=== PATIENT | female | born 1945 | race Caucasian/White ===

== ENCOUNTER → 2017-01-25 | Outpatient (REF) | payer MEDICARE ==
[2017-01-25 18:37] LABS: ALBUMIN 3.7 GM/DL (3.2-5.2); ALBUMIN/GLOBULIN RATIO 0.95 (1.00-1.93); ALKALINE PHOSPHATASE 130 U/L (45-117); ALT/SGPT 21 U/L (12-78); ANION GAP 6 MEQ/L (8-16); AST/SGOT 15 U/L (15-37); BILIRUBIN,TOTAL 0.4 MG/DL (0.2-1.0); BLOOD UREA NITROGEN 11 MG/DL (7-18); CARBON DIOXIDE LEVEL 30 MEQ/L (21-32); CHLORIDE LEVEL 102 MEQ/L (98-107); CHOLESTEROL LEVEL 158 MG/DL (<200); CREATININE FOR GFR 0.82 MG/DL (0.55-1.02); GLOMERULAR FILTRATION RATE > 60.0 (>45); GLUCOSE, FASTING 99 MG/DL (80-110); POTASSIUM SERUM 4.3 MEQ/L (3.5-5.1); SODIUM LEVEL 138 MEQ/L (136-145); TOTAL PROTEIN 7.6 GM/DL (6.4-8.2); TRIGLYCERIDES LEVEL 211 MG/DL (<150)
== END ==
LOC: M SFHCCLAY 11:34
PROVIDERS: ATTEND Family Medicine
DX: E78.2 Mixed hyperlipidemia (principal); I10 Essential (primary) hypertension

== ENCOUNTER → 2017-08-26 | Outpatient (CLI) | payer MEDICARE ==
--- NOTE | 2017-08-26 17:22 | REP ---
Digital diagnostic left breast mammography with CAD: History: 6-month followup microcalcifications left breast. Comparison [facility] mammography dated February 05, 2017 was read as BIRADS category 4 for new calcifications in the left breast. Comparison is also made with July 07, 2013 and May 20, 2012 prior mammography. Findings: Today's routine views are augmented by magnified focal spot compression views of the left breast. Six views are obtained. Breast parenchyma remains predominately fat replaced. The previously noted tight grouping of microcalcifications is again seen. No progressive changes are seen. Calcifications are somewhat less conspicuous today. No new soft tissue component is seen. No spiculation or architectural distortion is noted. Impression: No progressive change is seen in the previously noted grouping of microcalcifications in the left breast. BIRADS category must still be considered category 4 suspicious left breast imaging. If biopsy is not desired as originally suggested, continued follow-up is recommended. This mammogram was interpreted with the aid of an FDA-approved computer-aided detection system. The patient states she/he had a clinical breast exam in 6 months ago. The patient letter being requested is m#[id number]. Signed by Broderick Jones MD 08/26/2017 08:30 P
== END ==
LOC: M RAD 08-13 09:18
PROVIDERS: ATTEND Surgery
DX: R92.0 Mammographic microcalcification found on diagnostic imaging of breast (principal)

== ENCOUNTER → 2018-05-08 | Outpatient (REF) | payer MEDICARE ==
[2018-05-08 14:42] LABS: ALKALINE PHOSPHATASE 138 U/L (45-117); ALT/SGPT 23 U/L (12-78); ANION GAP 10 MEQ/L (8-16); AST/SGOT 15 U/L (7-37); BILIRUBIN,TOTAL 0.4 MG/DL (0.2-1.0); BLOOD UREA NITROGEN 10 MG/DL (7-18); CALCIUM LEVEL 9.1 MG/DL (8.8-10.2); CARBON DIOXIDE LEVEL 31 MEQ/L (21-32); CHLORIDE LEVEL 101 MEQ/L (98-107); CHOLESTEROL LEVEL 161 MG/DL (<200); CREATININE FOR GFR 0.91 MG/DL (0.55-1.30); GLOMERULAR FILTRATION RATE > 60.0 (>39); GLUCOSE, FASTING 121 MG/DL (70-100); POTASSIUM SERUM 3.4 MEQ/L (3.5-5.1); SODIUM LEVEL 142 MEQ/L (136-145); TRIGLYCERIDES LEVEL 233 MG/DL (<150)
[2018-05-08 14:43] LABS: ALBUMIN 3.5 GM/DL (3.2-5.2); CHOLESTEROL RISK RATIO 5.193 (<5); HDL CHOLESTEROL 31 MG/DL (>40); LDL CHOLESTEROL 83.4 MG/DL (<100); NON-HDL-C 130 MG/DL; TOTAL PROTEIN 7.4 GM/DL (6.4-8.2)
== END ==
LOC: M SFHCCLAY 08:34
DX: E78.2 Mixed hyperlipidemia (principal); I10 Essential (primary) hypertension
CPT/HCPCS: 84443

== ENCOUNTER → 2018-08-27 | Outpatient (CLI) | payer MEDICARE | LOC: M RAD 09:41 | DX: Z53.8 Procedure and treatment not carried out for other reasons (principal) ==

== ENCOUNTER → 2018-10-24 | Outpatient (REF) | payer MEDICARE ==
[2018-10-24 16:26] LABS: BLOOD UREA NITROGEN 11 MG/DL (7-18); CARBON DIOXIDE LEVEL 28 MEQ/L (21-32); CHLORIDE LEVEL 104 MEQ/L (98-107); CREATININE FOR GFR 0.85 MG/DL (0.55-1.30); GLOMERULAR FILTRATION RATE > 60.0 (>39); GLUCOSE, FASTING 95 MG/DL (70-100); POTASSIUM SERUM 3.9 MEQ/L (3.5-5.1); SODIUM LEVEL 141 MEQ/L (136-145)
== END ==
LOC: M SFHCCLAY 13:32
PROVIDERS: ATTEND Family Medicine
DX: E87.6 Hypokalemia (principal); I10 Essential (primary) hypertension
CPT/HCPCS: 80048; G0463

== ENCOUNTER → 2018-10-31 | Outpatient (CLI) | payer MEDICARE ==
--- NOTE | 2018-10-31 10:45 | REPMRS ---
Patient History 3D TOMOSYNTHESIS WAS PERFORMED. The patient states she has not had a clinical breast exam in over a year. Family history of unknown cancer at age 62 in sister. Took hormonal contraceptives for 9 years. Took estrogen for 17 years. Took progesterone for 17 years. Digital Mammo Screening Bilat: October 31, 2018 - Exam #: [id number] Bilateral CC and MLO view(s) were taken. Technologist: Christel Pa, Technologist Prior study comparison: August 26, 2017, left breast digital mammo diagnostic unilateral performed at [facility]. July 07, 2013, bilateral bilat screen digital mammo, performed at [facility] ([facility]). FINDINGS: There are scattered fibroglandular densities. There has been no change in the appearance of the mammogram from the prior studies. There is a mild amount of residual fibroglandular tissue which is fairly symmetric. There is no interval development of dominant mass, architectural distortion, or clustered microcalcification suggestive of malignancy. Assessment: BI-RADS/ACR category 1 mammogram. Negative Mammogram. Recommendation Routine screening mammogram in 1 year (for women over age 40). This mammogram was interpreted with the aid of an FDA-approved computer-aided dectection system. Electronically Signed By: Rogelio Love MD 10/31/18 [id number]
== END ==
LOC: M RAD 09:57
PROVIDERS: ATTEND Family Medicine
DX: Z12.31 Encounter for screening mammogram for malignant neoplasm of breast (principal); Z79.3 Long term (current) use of hormonal contraceptives

== ENCOUNTER → 2019-03-16 | Outpatient (REF) | payer MEDICARE ==
[2019-03-16 16:44] LABS: BLOOD UREA NITROGEN 8 MG/DL (7-18); CALCIUM LEVEL 8.7 MG/DL (8.8-10.2); CARBON DIOXIDE LEVEL 31 MEQ/L (21-32); CHLORIDE LEVEL 102 MEQ/L (98-107); CREATININE FOR GFR 0.79 MG/DL (0.55-1.30); GLOMERULAR FILTRATION RATE > 60.0 (>39); GLUCOSE, FASTING 117 MG/DL (70-100); POTASSIUM SERUM 3.4 MEQ/L (3.5-5.1); SODIUM LEVEL 138 MEQ/L (136-145)
== END ==
LOC: M SFHCCLAY 11:11
PROVIDERS: ATTEND Family Medicine
DX: I10 Essential (primary) hypertension (principal)

== ENCOUNTER 2019-06-10 09:51 | Day surgery (SDC) | payer MEDICARE ==
[~2019-06-10] VITALS: Ht 157.5 cm; Wt 80.9 kg
[~2019-06-10 09:51] MED LIST: ALL10TAB29 PO; HYDR25TAB PO; LOSA100T50 PO; MONT10TA2 PO; NS 1,000 ML IV ONE; OMEP40CA2 PO; POTA1TAB14 PO; SIMV20TA2 PO; VITA1CHW7 PO
--- NOTE | 2019-06-10 11:43 | ROOR ---
Patient Name: Kacie Mccloud Procedure Date: 06/10/2019 11:19 AM Date of : 1945 Age: 73 Room: [facility] Gender: Female Note Status: Finalized Procedure: Total Colonoscopy to Cecum + Cold Snare Polypectomy Indications: High risk colon cancer surveillance: Personal history of colonic polyps, Last colonoscopy: 2014 Providers: Alfonso Ga MD Referring MD: Ulices Camejo MD Requesting Provider: Medicines: Monitored Anesthesia Care Complications: No immediate complications. Procedure: Pre-Anesthesia Assessment: - The heart rate, respiratory rate, oxygen saturations, blood pressure, adequacy of pulmonary ventilation, and response to care were monitored throughout the procedure. The Colonoscope was introduced through the anus and advanced to the cecum, identified by appendiceal orifice and ileocecal valve. The colonoscopy was performed without difficulty. The patient tolerated the procedure well. The quality of the bowel preparation was excellent. Findings: The perianal and digital rectal examinations were normal. Non-bleeding internal hemorrhoids were found during retroflexion. The hemorrhoids were small and Grade I (internal hemorrhoids that do not prolapse). A small polyp was found in the ascending colon. The polyp was sessile. The polyp was removed with a cold snare. Resection and retrieval were complete. The exam was otherwise without abnormality on direct and retroflexion views. Impression: - Non-bleeding internal hemorrhoids. - One small polyp in the ascending colon, removed with a cold snare. Resected and retrieved. - The examination was otherwise normal on direct and retroflexion views. - The exam was otherwise normal to the cecum. Recommendation: - Patient has a contact number available for emergencies. The signs and symptoms of potential delayed complications were discussed with the patient. Return to normal activities tomorrow. Written discharge instructions were provided to the patient. - High fiber diet. - Discharge patient to home. - Continue present medications. - Repeat colonoscopy in 5 years for surveillance. - Return to referring physician. - The findings and recommendations were discussed with the patient's family. Alfonso Ga MD Alfonso Ga MD 06/10/2019 11:43:12 AM Electronically signed by Alfonso Ga MD Number of Addenda: 0 Note Initiated On: 06/10/2019 11:19 AM Estimated Blood Loss: Estimated blood loss: none.
[2019-06-10] MEDS ORDERED: LIDOCAINE 2% INJ 100 MG/5 ML SDV (FOR ANES.) As Ordered ONE (11:51)
[2019-06-10] MEDS ORDERED: PROPOFOL 200 MG/20 ML VIAL As Ordered ONE (11:51)
[2019-06-10 12:02] VITALS: BP 141/78
== END 2019-06-10 12:07 | disposition home or self-care (01) ==
LOC: M OPP 09:51
PROVIDERS: ATTEND Internal Medicine Gastroenterology
DX: Z12.11 Encounter for screening for malignant neoplasm of colon (principal); Z86.010 Personal history of colon polyps; K64.0 First degree hemorrhoids; D12.2 Benign neoplasm of ascending colon; Z79.899 Other long term (current) drug therapy; Z88.2 Allergy status to sulfonamides; Z91.040 Latex allergy status; Z91.048 Other nonmedicinal substance allergy status; F17.210 Nicotine dependence, cigarettes, uncomplicated

== ENCOUNTER 2019-09-10 14:18 | Emergency (ER) | payer MEDICARE ==
[~2019-09-10] VITALS: Ht 154.9 cm; Wt 77.3 kg
[~2019-09-10 14:18] MED LIST changes: -NS 1,000 ML IV ONE; -OMEP40CA2 PO; +OMEP40CA97 PO; -SIMV20TA2 PO; +SIMV20TA22 PO
[2019-09-10 15:40] VITALS: BP 142/77
== END 2019-09-10 15:44 | disposition home or self-care (01) ==
LOC: M ED 14:18
DX: S60.445A External constriction of left ring finger, initial encounter (principal); X58.XXXA Exposure to other specified factors, initial encounter; Y92.9 Unspecified place or not applicable; Y93.9 Activity, unspecified; Y99.9 Unspecified external cause status; I10 Essential (primary) hypertension; F17.200 Nicotine dependence, unspecified, uncomplicated; Z79.899 Other long term (current) drug therapy; Z88.2 Allergy status to sulfonamides; Z91.89 Other specified personal risk factors, not elsewhere classified; Z91.040 Latex allergy status

== ENCOUNTER → 2019-10-02 | Outpatient (REF) | payer MEDICARE ==
[2019-10-02 16:19] LABS: HEMOGLOBIN 13.5 g/dl (12.0-15.5); MEAN CORPUSCULAR HEMOGLOBIN 30.7 pg (27.0-33.0); MEAN CORPUSCULAR HGB CONC 32.1 g/dl (32.0-36.5); MEAN CORPUSCULAR VOLUME 95.5 fl (80.0-96.0); PLATELET COUNT, AUTOMATED 297 10^3/uL (150-450); WHITE BLOOD COUNT 8.6 10^3/uL (4.0-10.0)
[2019-10-02 16:28] LABS: ALBUMIN 3.9 GM/DL (3.2-5.2); ALT/SGPT 16 U/L (12-78); BILIRUBIN,TOTAL 0.5 MG/DL (0.2-1.0); BLOOD UREA NITROGEN 10 MG/DL (7-18); CALCIUM LEVEL 9.1 MG/DL (8.8-10.2); CARBON DIOXIDE LEVEL 29 MEQ/L (21-32); CHLORIDE LEVEL 105 MEQ/L (98-107); CHOLESTEROL LEVEL 202 MG/DL (<200); CHOLESTEROL RISK RATIO 5.941 (<5); CREATININE FOR GFR 0.89 MG/DL (0.55-1.30); GLOMERULAR FILTRATION RATE > 60.0 (>39); GLUCOSE, FASTING 97 MG/DL (70-100); HDL CHOLESTEROL 34 MG/DL (>40); LDL CHOLESTEROL 123 MG/DL (<100); NON-HDL-C 168 MG/DL; POTASSIUM SERUM 4.2 MEQ/L (3.5-5.1); SODIUM LEVEL 141 MEQ/L (136-145); TOTAL PROTEIN 7.9 GM/DL (6.4-8.2); TRIGLYCERIDES LEVEL 226 MG/DL (<150)
== END ==
LOC: M SFHCCLAY 11:19
PROVIDERS: ATTEND Family Medicine
DX: I10 Essential (primary) hypertension (principal); E78.00 Pure hypercholesterolemia, unspecified; K21.9 Gastro-esophageal reflux disease without esophagitis

== ENCOUNTER → 2020-03-24 | Outpatient (REF) | payer MEDICARE ==
[~2020-03-24] MED LIST changes: -ALL10TAB29 PO; +CETI-24 PO; +HYDR-3490 PO; -HYDR25TAB PO; +MONT10TA10 PO; -MONT10TA2 PO
[2020-03-24 18:00] LABS: HEMATOCRIT 39.6 % (36.0-47.0); HEMOGLOBIN 12.5 g/dl (12.0-15.5); MEAN CORPUSCULAR HEMOGLOBIN 30.9 pg (27.0-33.0); MEAN CORPUSCULAR HGB CONC 31.6 g/dl (32.0-36.5); MEAN CORPUSCULAR VOLUME 97.8 fl (80.0-96.0); PLATELET COUNT, AUTOMATED 255 10^3/uL (150-450); RED BLOOD COUNT 4.05 10^6/uL (4.00-5.40); WHITE BLOOD COUNT 9.8 10^3/uL (4.0-10.0)
[2020-03-24 18:16] LABS: ALBUMIN 3.5 GM/DL (3.2-5.2); ALT/SGPT 20 U/L (12-78); BILIRUBIN,TOTAL 0.5 MG/DL (0.2-1.0); BLOOD UREA NITROGEN 10 MG/DL (7-18); CALCIUM LEVEL 9.1 MG/DL (8.8-10.2); CARBON DIOXIDE LEVEL 30 MEQ/L (21-32); CHLORIDE LEVEL 105 MEQ/L (98-107); CHOLESTEROL LEVEL 153 MG/DL (<200); CHOLESTEROL RISK RATIO 4.935 (<5); CREATININE FOR GFR 0.84 MG/DL (0.55-1.30); GLOMERULAR FILTRATION RATE > 60.0 (>39); GLUCOSE, FASTING 134 MG/DL (70-100); HDL CHOLESTEROL 31 MG/DL (>40); LDL CHOLESTEROL 78 MG/DL (<100); NON-HDL-C 122 MG/DL; POTASSIUM SERUM 4.4 MEQ/L (3.5-5.1); SODIUM LEVEL 140 MEQ/L (136-145); TOTAL PROTEIN 7.4 GM/DL (6.4-8.2); TRIGLYCERIDES LEVEL 218 MG/DL (<150)
== END ==
LOC: M SFHCCLAY 13:31
PROVIDERS: ATTEND Family Medicine
DX: M79.89 Other specified soft tissue disorders (principal); E78.2 Mixed hyperlipidemia; I10 Essential (primary) hypertension

== ENCOUNTER → 2021-04-27 | Outpatient (REF) | payer MEDICARE ==
[~2021-04-27] MED LIST changes: +OMEP40CA4 PO; -OMEP40CA97 PO
[2021-04-27 16:25] LABS: ALBUMIN 4.1 GM/DL (3.2-5.2); ALT/SGPT 25 U/L (12-78); BILIRUBIN,TOTAL 0.4 MG/DL (0.2-1.0); BLOOD UREA NITROGEN 11 MG/DL (7-18); CALCIUM LEVEL 9.2 MG/DL (8.8-10.2); CARBON DIOXIDE LEVEL 32 MEQ/L (21-32); CHLORIDE LEVEL 106 MEQ/L (98-107); CHOLESTEROL LEVEL 166 MG/DL (<200); CHOLESTEROL RISK RATIO 5.187 (<5); CREATININE FOR GFR 0.82 MG/DL (0.55-1.30); GLOMERULAR FILTRATION RATE > 60.0 (>39); GLUCOSE, FASTING 106 MG/DL (70-100); HDL CHOLESTEROL 32 MG/DL (>40); LDL CHOLESTEROL 90 MG/DL (<100); NON-HDL-C 134 MG/DL; POTASSIUM SERUM 4.5 MEQ/L (3.5-5.1); SODIUM LEVEL 141 MEQ/L (136-145); TOTAL PROTEIN 7.9 GM/DL (6.4-8.2); TRIGLYCERIDES LEVEL 218 MG/DL (<150)
== END ==
LOC: M SFHCCLAY 10:37
PROVIDERS: ATTEND Family Medicine
DX: Z00.00 Encounter for general adult medical examination without abnormal findings (principal); I10 Essential (primary) hypertension; E78.2 Mixed hyperlipidemia; M79.89 Other specified soft tissue disorders

== ENCOUNTER → 2021-05-17 | Outpatient (CLI) | payer MEDICARE ==
--- NOTE | 2021-05-17 15:43 | REP ---
INDICATION: AYESHA SCR MAMMO/Z12.31. COMPARISON: Multiple TECHNIQUE: Digital screening mammography was carried out bilaterally in the CC and MLO projections using both 2D and 3D modalities and compared to the prior exams. By history, the patient has no complaints of a palpable breast abnormality or other significant breast complaints. FINDINGS: The breasts are unchanged in size and shape. Once again stable benign calcifications are again seen bilaterally. There are no sal soft tissue densities or spiculated masses. There is no internal architectural distortion. There are no suspicious calcifications. There is no skin thickening or nipple retraction. The Volpara volumetric breast density pattern is b. IMPRESSION: BIRADS/ACR category 2 benign findings. There is no evidence of malignant alteration of the breasts.. This patient's Tyrer-Cuzick lifetime breast cancer risk assessment score is 2.4%. This mammogram was interpreted with the aid of an FDA-approved computer-aided detection system. The patient states she had a clinical breast exam in over a year. The patient letter being requested is M1. RECOMMENDATION: Repeat screening mammography recommended 1 year (for women over 40). <Electronically signed by Kenneth Arellano > 05/17/21 [id number]
== END ==
LOC: M WHC 14:54
PROVIDERS: ATTEND Family Medicine
DX: Z12.31 Encounter for screening mammogram for malignant neoplasm of breast (principal)

== ENCOUNTER → 2021-09-27 | Outpatient (REF) | payer MEDICARE | LOC: M LAB REF 16:41 | PROVIDERS: ATTEND Surgery | DX: L72.0 Epidermal cyst (principal) ==

== ENCOUNTER → 2022-07-17 | Outpatient (CLI) | payer MEDICARE ==
[~2022-07-17] MED LIST changes: +LOSA100T45 PO; -LOSA100T50 PO; -MONT10TA10 PO; +MONT10TA97 PO
== END ==
LOC: M RAD 14:15
PROVIDERS: ATTEND Family Medicine
DX: Z12.2 Encounter for screening for malignant neoplasm of respiratory organs (principal); Z87.891 Personal history of nicotine dependence; J98.4 Other disorders of lung; J98.11 Atelectasis; I25.10 Atherosclerotic heart disease of native coronary artery without angina pectoris

== ENCOUNTER → 2022-08-02 | Outpatient (REF) | payer MEDICARE ==
[2022-08-02 17:42] LABS: HEMATOCRIT 39.9 % (36.0-47.0); HEMOGLOBIN 12.5 g/dl (12.0-15.5); MEAN CORPUSCULAR HEMOGLOBIN 30.6 pg (27.0-33.0); MEAN CORPUSCULAR HGB CONC 31.3 g/dl (32.0-36.5); MEAN CORPUSCULAR VOLUME 97.6 fl (80.0-96.0); PLATELET COUNT, AUTOMATED 257 10^3/uL (150-450); RED BLOOD COUNT 4.09 10^6/uL (4.00-5.40); WHITE BLOOD COUNT 10.3 10^3/uL (4.0-10.0)
[2022-08-02 18:25] LABS: ALBUMIN 3.7 GM/DL (3.2-5.2); ALKALINE PHOSPHATASE 126 U/L (45-117); ALT/SGPT 25 U/L (12-78); AST/SGOT 19 U/L (7-37); BILIRUBIN,TOTAL 0.4 MG/DL (0.2-1.0); BLOOD UREA NITROGEN 12 MG/DL (7-18); CALCIUM LEVEL 9.7 MG/DL (8.8-10.2); CARBON DIOXIDE LEVEL 31 MEQ/L (21-32); CHLORIDE LEVEL 105 MEQ/L (98-107); CHOLESTEROL LEVEL 158 MG/DL (<200); CHOLESTEROL RISK RATIO 4.937 (<5); CREATININE FOR GFR 0.93 MG/DL (0.55-1.30); GLOMERULAR FILTRATION RATE > 60.0 (>39); GLUCOSE, FASTING 143 MG/DL (70-100); HDL CHOLESTEROL 32 MG/DL (>40); LDL CHOLESTEROL 77 MG/DL (<100); NON-HDL-C 126 MG/DL; SODIUM LEVEL 140 MEQ/L (136-145); TOTAL PROTEIN 7.5 GM/DL (6.4-8.2); TRIGLYCERIDES LEVEL 247 MG/DL (<150)
== END ==
LOC: M SFHCCLAY 13:50
PROVIDERS: ATTEND Family Medicine
DX: I10 Essential (primary) hypertension (principal); E78.00 Pure hypercholesterolemia, unspecified; J44.9 Chronic obstructive pulmonary disease, unspecified

== ENCOUNTER → 2022-08-06 | Outpatient (CLI) | payer MEDICARE | LOC: M WHC 11:13 | PROVIDERS: ATTEND Family Medicine | DX: Z12.31 Encounter for screening mammogram for malignant neoplasm of breast (principal) ==

== ENCOUNTER → 2023-06-07 | Outpatient (REF) | payer MEDICARE ==
[~2023-06-07] MED LIST changes: -LOSA100T45 PO; +LOSA100T46 PO; +POTA-298 PO; -POTA1TAB14 PO
== END ==
LOC: M SFHCCLAY 13:57
PROVIDERS: ATTEND Family Medicine
DX: I10 Essential (primary) hypertension (principal); I83.11 Varicose veins of right lower extremity with inflammation; I83.12 Varicose veins of left lower extremity with inflammation; E78.00 Pure hypercholesterolemia, unspecified

== ENCOUNTER → 2023-06-14 | Outpatient (REF) | payer MEDICARE ==
[2023-06-14 18:02] LABS: APPEARANCE, URINE CLEAR (CLEAR); BACTERIA, URINE AUTO NEGATIVE (NEGATIVE); BILIRUBIN, URINE AUTO NEGATIVE (NEGATIVE); BLOOD, URINE BLOOD NEGATIVE (NEGATIVE); COLOR, URINE YELLOW (YELLOW); GLUCOSE, URINE (UA) AUTO NEGATIVE (NEGATIVE); KETONE, URINE AUTO NEGATIVE (NEGATIVE); LEUKOCYTE ESTERASE, URINE AUTO NEGATIVE (NEGATIVE); NITRITE, URINE AUTO NEGATIVE (NEGATIVE); PROTEIN, URINE AUTO NEGATIVE (NEGATIVE); RBC, URINE AUTO 1 /HPF (0-3); SPECIFIC GRAVITY URINE AUTO 1.011 (1.002-1.035); SQUAMOUS EPITHELIAL CELL UR AU 2 /HPF (0-6); UROBILINOGEN, URINE AUTO 0.2 mg/dL (0.0-2.0); WBC, URINE AUTO 1 /HPF (0-3)
[2023-06-14 18:43] LABS: ALBUMIN 3.6 G/DL (3.2-5.2); ALKALINE PHOSPHATASE 135 U/L (46-116); ALT/SGPT 18 U/L (7.0-40); AST/SGOT 18 U/L (<34); BILIRUBIN,TOTAL 0.4 MG/DL (0.3-1.2); BLOOD UREA NITROGEN 11 MG/DL (9-23); CALCIUM LEVEL 8.9 MG/DL (8.3-10.6); CARBON DIOXIDE LEVEL 31 MMOL/L (20-31); CHLORIDE LEVEL 104 MMOL/L (98-107); CHOLESTEROL LEVEL 159 MG/DL (<200); CHOLESTEROL RISK RATIO 5.38 (<5); CREATININE FOR GFR 0.76 MG/DL (0.55-1.30); GLOMERULAR FILTRATION RATE > 60.0 (>39); GLUCOSE, FASTING 114 MG/DL (74-106); HDL CHOLESTEROL 29.5 MG/DL (>40); LDL CHOLESTEROL 84.9 MG/DL (<100); NON-HDL-C 129.5 MG/DL; POTASSIUM SERUM 4.5 MMOL/L (3.5-5.1); SODIUM LEVEL 141 MMOL/L (136-145); TOTAL PROTEIN 7.2 G/DL (5.7-8.2); TRIGLYCERIDES LEVEL 223 MG/DL (<150)
== END ==
LOC: M SFHCCLAY 10:22
PROVIDERS: ATTEND Family Medicine
DX: I10 Essential (primary) hypertension (principal); I83.11 Varicose veins of right lower extremity with inflammation; I83.12 Varicose veins of left lower extremity with inflammation; E78.00 Pure hypercholesterolemia, unspecified

== ENCOUNTER → 2023-10-18 | Outpatient (CLI) | payer MEDICARE | LOC: M RAD 13:19 | PROVIDERS: ATTEND Family Medicine | DX: Z12.2 Encounter for screening for malignant neoplasm of respiratory organs (principal); Z87.891 Personal history of nicotine dependence ==

== ENCOUNTER → 2024-03-24 | Outpatient (REF) | payer MEDICARE | LOC: M SFHCCLAY 13:37 | PROVIDERS: ATTEND Family Medicine | DX: Z00.00 Encounter for general adult medical examination without abnormal findings (principal); I10 Essential (primary) hypertension; K21.9 Gastro-esophageal reflux disease without esophagitis ==

== ENCOUNTER → 2024-03-27 | Outpatient (REF) | payer MEDICARE ==
[2024-03-27 17:04] LABS: ALBUMIN 3.8 G/DL (3.2-5.2); ALKALINE PHOSPHATASE 123 U/L (46-116); ALT/SGPT 14 U/L (7.0-40); AST/SGOT 12 U/L (<34); BILIRUBIN,TOTAL 0.6 MG/DL (0.3-1.2); BLOOD UREA NITROGEN 14 MG/DL (9-23); CALCIUM LEVEL 9.5 MG/DL (8.3-10.6); CARBON DIOXIDE LEVEL 28 MMOL/L (20-31); CHLORIDE LEVEL 107 MMOL/L (98-107); CHOLESTEROL LEVEL 175 MG/DL (<200); CHOLESTEROL RISK RATIO 6.34 (<5); CREATININE FOR GFR 0.76 MG/DL (0.55-1.30); GLOMERULAR FILTRATION RATE > 60.0 (>39); GLUCOSE, FASTING 108 MG/DL (74-106); HDL CHOLESTEROL 27.6 MG/DL (>40); LDL CHOLESTEROL 95.6 MG/DL (<100); NON-HDL-C 147.4 MG/DL; POTASSIUM SERUM 4.6 MMOL/L (3.5-5.1); SODIUM LEVEL 141 MMOL/L (136-145); TOTAL PROTEIN 7.3 G/DL (5.7-8.2); TRIGLYCERIDES LEVEL 259 MG/DL (<150)
[2024-03-27 17:07] LABS: HEMATOCRIT 39.9 % (36.0-47.0); MEAN CORPUSCULAR HEMOGLOBIN 31.9 pg (27.0-33.0); MEAN CORPUSCULAR HGB CONC 32.6 g/dl (32.0-36.5); MEAN CORPUSCULAR VOLUME 97.8 fl (80.0-96.0); PLATELET COUNT, AUTOMATED 246 10^3/uL (150-450); RED BLOOD COUNT 4.08 10^6/uL (4.00-5.40); WHITE BLOOD COUNT 8.3 10^3/uL (4.0-10.0)
== END ==
LOC: M SFHCCLAY 11:35
PROVIDERS: ATTEND Family Medicine
DX: Z00.00 Encounter for general adult medical examination without abnormal findings (principal); I10 Essential (primary) hypertension; K21.9 Gastro-esophageal reflux disease without esophagitis; E78.2 Mixed hyperlipidemia

== ENCOUNTER → 2024-04-07 | Outpatient (CLI) | payer MEDICARE | LOC: M WHC 08:51 | PROVIDERS: ATTEND Family Medicine | DX: Z13.820 Encounter for screening for osteoporosis (principal); M85.852 Other specified disorders of bone density and structure, left thigh; M85.88 Other specified disorders of bone density and structure, other site; M81.0 Age-related osteoporosis without current pathological fracture ==

== ENCOUNTER → 2024-08-17 | Outpatient (CLI) | payer MEDICARE | LOC: M WUC 12:30 | PROVIDERS: ATTEND Physician Assistant | DX: M20.12 Hallux valgus (acquired), left foot (principal); M77.32 Calcaneal spur, left foot; M20.42 Other hammer toe(s) (acquired), left foot; L97.521 Non-pressure chronic ulcer of other part of left foot limited to breakdown of skin ==

== ENCOUNTER → 2024-09-15 | Outpatient (REF) | payer MEDICARE ==
[2024-09-15 19:02] LABS: ALBUMIN 3.7 G/DL (3.2-5.2); BILIRUBIN,TOTAL 0.2 MG/DL (0.3-1.2); CHOLESTEROL RISK RATIO 6.49 (<5); CREATININE FOR GFR 1.54 MG/DL (0.55-1.30); GLOMERULAR FILTRATION RATE 34.8 (>39); HDL CHOLESTEROL 28.5 MG/DL (>40); LDL CHOLESTEROL 107.1 MG/DL (<100); NON-HDL-C 156.5 MG/DL; POTASSIUM SERUM 4.8 MMOL/L (3.5-5.1); TOTAL PROTEIN 7.6 G/DL (5.7-8.2)
[2024-09-15 19:18] LABS: HEMOGLOBIN A1c 6.1 % (4.0-6.0)
== END ==
LOC: M SFHCCLAY 13:36
PROVIDERS: ATTEND Physician Assistant
DX: I10 Essential (primary) hypertension (principal); K21.9 Gastro-esophageal reflux disease without esophagitis; J44.9 Chronic obstructive pulmonary disease, unspecified; E78.2 Mixed hyperlipidemia; Z72.0 Tobacco use; Z68.38 Body mass index [BMI] 38.0-38.9, adult; E55.9 Vitamin D deficiency, unspecified; M81.0 Age-related osteoporosis without current pathological fracture; Z79.899 Other long term (current) drug therapy

== ENCOUNTER → 2024-09-18 | Outpatient (CLI) | payer MEDICARE ==
[~2024-09-18] MED LIST changes: +ALBU8.5H PO; +ALEN70TA82 PO; +CALCCAP4 PO; +CARV3.12 PO; +CHOL50003 PO; +ISOVUE-370 76% 100ML VIAL As Ordered ONE; +MELA5TAB7 PO; +SPIR-10 PO
== END ==
LOC: M RAD 10:20
PROVIDERS: ATTEND Surgery
DX: L97.522 Non-pressure chronic ulcer of other part of left foot with fat layer exposed (principal); R68.89 Other general symptoms and signs; I70.202 Unspecified atherosclerosis of native arteries of extremities, left leg; K57.30 Diverticulosis of large intestine without perforation or abscess without bleeding; R22.43 Localized swelling, mass and lump, lower limb, bilateral
CPT/HCPCS: 73706; Q9967

== ENCOUNTER → 2024-09-22 | Outpatient (REF) | payer MEDICARE ==
[~2024-09-22] MED LIST changes: +CEFD1CAP9 PO; +CEFD300CAP PO; +DOXY100T PO; +DOXY100T27 PO; +ELIQ5TAB PO; -ISOVUE-370 76% 100ML VIAL As Ordered ONE
[2024-09-22 14:04] LABS: CALCIUM LEVEL 9.3 MG/DL (8.3-10.6); CREATININE FOR GFR 1.74 MG/DL (0.55-1.30); GLOMERULAR FILTRATION RATE 30.2 (>39)
== END ==
LOC: M SFHCCLAY 08:26
PROVIDERS: ATTEND Physician Assistant
DX: N28.9 Disorder of kidney and ureter, unspecified (principal)

== ENCOUNTER 2024-09-26 10:14 | Inpatient (IN) | payer MEDICARE ==
[~2024-09-26] VITALS: Ht 154.9 cm; Wt 84.7 kg
[~2024-09-26 10:14] MED LIST changes: -ALBU8.5H PO; -ALEN70TA82 PO; -CALCCAP4 PO; -CARV3.12 PO; -CEFD1CAP9 PO; -CEFD300CAP PO; -CHOL50003 PO; -DOXY100T PO; -DOXY100T27 PO; -ELIQ5TAB PO; -MELA5TAB7 PO; -SPIR-10 PO
[2024-09-26 11:32] LABS: BASO # 0.1 10^3/uL (0.0-0.2); BASO % 0.7 % (0.0-1.0); EOS # 0.3 10^3/uL (0.0-0.5); EOS % 2.4 % (0.0-3.0); HEMATOCRIT 31.6 % (36.0-47.0); HEMOGLOBIN 10.4 g/dl (12.0-15.5); LYMPH # 1.5 10^3/uL (1.5-5.0); LYMPH % 11.7 % (24.0-44.0); MEAN CORPUSCULAR HEMOGLOBIN 31.7 pg (27.0-33.0); MEAN CORPUSCULAR HGB CONC 32.9 g/dl (32.0-36.5); MEAN CORPUSCULAR VOLUME 96.3 fl (80.0-96.0); MONO # 1.2 10^3/uL (0.0-0.8); MONO % 9.7 % (2.0-8.0); NEUTROPHILS # 9.6 10^3/uL (1.5-8.5); NEUTROPHILS % 74.9 % (36.0-66.0); PLATELET COUNT, AUTOMATED 283 10^3/uL (150-450); RED BLOOD COUNT 3.28 10^6/uL (4.00-5.40); WHITE BLOOD COUNT 12.8 10^3/uL (4.0-10.0)
[2024-09-26 12:01] LABS: ETHYL ALCOHOL (ETHANOL) < 0.003 % (0.000-0.010)
[2024-09-26 12:03] LABS: ALBUMIN 3.2 G/DL (3.2-5.2); ALKALINE PHOSPHATASE 121 U/L (35-104); ALT/SGPT 15 U/L (7.0-40); AST/SGOT 13 U/L (<34); BILIRUBIN,DIRECT 0.1 MG/DL (<0.4); BILIRUBIN,TOTAL 0.3 MG/DL (0.3-1.2); BLOOD UREA NITROGEN 54 MG/DL (9-23); CALCIUM LEVEL 8.7 MG/DL (8.3-10.6); CARBON DIOXIDE LEVEL 16 MMOL/L (20-31); CHLORIDE LEVEL 112 MMOL/L (98-107); GLOMERULAR FILTRATION RATE 38.8 (>39); GLUCOSE, FASTING 106 MG/DL (74-106); SODIUM LEVEL 139 MMOL/L (136-145); TOTAL PROTEIN 7.7 G/DL (5.7-8.2)
[2024-09-26 12:10] LABS: THYROID STIMULATING HORMONE 4.588 uIU/ML (0.55-4.78)
[2024-09-26 13:42] LABS: ERYTHROCYTE SEDIMENTATION RATE 60 mm/hr (0-30)
[2024-09-26 13:49] LABS: CK-MB VALUE MASS 1.1 NG/ML (<3.6)
[2024-09-26 13:51] LABS: C REACTIVE PROTEIN QUANTITATIV 12.87 MG/DL (<1.0)
[2024-09-26 13:53] LABS: CPK CREATINE PHOSPHOKINASE 31 U/L (34-145); MB/CK RELATIVE INDEX 3.54 (< OR =4)
[2024-09-26 14:15] LABS: VENOUS BASE EXCESS -12.6 (-2.0-2.0); VENOUS HCO3 14.9 MMOL/L (23.0-27.0); VENOUS O2 SATURATION 53.9 % (60.0-80.0); VENOUS PARTIAL PRESSURE CO2 40.3 mmHg (38.0-50.0); VENOUS PARTIAL PRESSURE O2 33.2 mmHg (30.0-50.0); VENOUS PH 7.187 UNITS (7.330-7.430); VENOUS STANDARD HCO3 13.9 MMOL/L; VENOUS TOTAL CO2 16.2 MMOL/L (24.0-28.0)
[2024-09-26] MEDS: NS (Normal Saline) 0.9% 1,000 ML IV ONE (14:30)
[2024-09-26] MEDS ORDERED: ISOVUE-370 76% 100ML VIAL As Ordered ONE (15:16)
[2024-09-26 15:24] LABS: CK-MB VALUE MASS 1.3 NG/ML (<3.6)
[2024-09-26 15:27] LABS: MB/CK RELATIVE INDEX 4.81 (< OR =4)
[2024-09-26] MEDS ORDERED: VANCOMYCIN/WATER FOR INJ 1,000 MG in IV 1 EA IV SCH (15:55)
[2024-09-26] MEDS ORDERED: HEPARIN SOD (PORCINE) 5000UNITS/ML 1ML VIAL/SYRINGE IV PRN (16:10)
[2024-09-26] MEDS: cefTRIAXone SOD 1 GM in DEXTROSE 5% (D5W) ADV/MINI-BAG 50 ML IV ONE (16:11)
[2024-09-26] MEDS: NS (Normal Saline) 0.9% 1,000 ML IV SCH (16:55)
[2024-09-26] MEDS ORDERED: IPRATROPIUM 0.5MG/ALBUTEROL 2.5MG INH SOL UD 3ML (DUONEB) NEB PRN (16:55)
[2024-09-26] MEDS ORDERED: ACETAMINOPHEN 325 MG TAB PO PRN (16:55)
[2024-09-26] MEDS ORDERED: CALCCAP4 PO (18:31)
[2024-09-26] MEDS ORDERED: SPIR-10 PO (18:31)
[2024-09-26] MEDS ORDERED: ALEN70TA82 PO (18:31)
[2024-09-26] MEDS ORDERED: CARV3.12 PO (18:31)
[2024-09-26] MEDS ORDERED: CHOL50003 PO (18:31)
[2024-09-26] MEDS ORDERED: ALBU8.5H PO (18:31)
[2024-09-26] MEDS ORDERED: MELA5TAB7 PO (18:31)
[2024-09-26] MEDS ORDERED: HOME MED LIST COMPLETE! XX SCH (18:35)
[2024-09-26 18:36] LABS: CREATININE,RANDOM URINE 91.8 MG/DL
[2024-09-26 18:40] LABS: IRON (FE) 12 UG/DL (50-170); PERCENT SATURATION 4.6 % (13.2-45.0); TOTAL IRON BINDING CAPACITY 259 UG/DL (250-425)
[2024-09-26 18:42] LABS: VITAMIN B12 LEVEL 420 PG/ML (211-911)
[2024-09-26 18:43] LABS: FERRITIN 275.6 NG/ML (7.3-270.7)
[2024-09-26 18:47] LABS: PROCALCITONIN 0.12 ng/ml
[2024-09-26 18:50] LABS: FOLATE 10.73 NG/ML (>5.4)
[2024-09-26] MEDS: APIXABAN 5 MG TAB (ELIQUIS) PO SCH (18:56)
[2024-09-26] MEDS: IPRATROPIUM 0.5MG/ALBUTEROL 2.5MG INH SOL UD 3ML (DUONEB) NEB SCH (20:11)
[2024-09-26 20:45] VITALS: BP 131/63; TEMP 97.2; O2SAT 94
[2024-09-26] MEDS: SODIUM BICARBONATE 325 MG TAB PO SCH (21:39)
[2024-09-26] MEDS: DOXYCYCLINE HYCLATE 100MG TABLET PO SCH (21:40)
[2024-09-26] MEDS: CARVedilol 3.125 MG TAB PO SCH (21:40)
[2024-09-26 23:41] VITALS: BP 124/60; TEMP 96.9; O2SAT 92
[2024-09-27 04:08] VITALS: BP 130/58; TEMP 97.7; O2SAT 93
[2024-09-27 05:27] LABS: BASO # 0.1 10^3/uL (0.0-0.2); BASO % 0.8 % (0.0-1.0); EOS # 0.7 10^3/uL (0.0-0.5); HEMATOCRIT 27.1 % (36.0-47.0); HEMOGLOBIN 9.1 g/dl (12.0-15.5); LYMPH # 1.1 10^3/uL (1.5-5.0); LYMPH % 10.3 % (24.0-44.0); MEAN CORPUSCULAR HEMOGLOBIN 31.4 pg (27.0-33.0); MEAN CORPUSCULAR HGB CONC 33.6 g/dl (32.0-36.5); MEAN CORPUSCULAR VOLUME 93.4 fl (80.0-96.0); MONO # 1.1 10^3/uL (0.0-0.8); MONO % 9.8 % (2.0-8.0); NEUTROPHILS # 7.9 10^3/uL (1.5-8.5); NEUTROPHILS % 72.4 % (36.0-66.0); PLATELET COUNT, AUTOMATED 247 10^3/uL (150-450); WHITE BLOOD COUNT 10.9 10^3/uL (4.0-10.0)
[2024-09-27 05:44] LABS: C REACTIVE PROTEIN QUANTITATIV 10.44 MG/DL (<1.0)
[2024-09-27 06:16] LABS: CALCIUM LEVEL 7.9 MG/DL (8.3-10.6); CREATININE FOR GFR 0.98 MG/DL (0.55-1.30); GLOMERULAR FILTRATION RATE 58.6 (>39); POTASSIUM SERUM 4.4 MMOL/L (3.5-5.1)
[2024-09-27 07:20] VITALS: BP 132/60; TEMP 97.2; O2SAT 93
[2024-09-27] MEDS: MAG SULF 1GM/100ML (MAG RUN) 1 GM in IV 1 EA IV SCH (07:47)
[2024-09-27] MEDS ORDERED: SODIUM BICARBONATE 75 MEQ in NS 0.45% 1,000 ML IV SCH (09:00)
[2024-09-27 11:05] LABS: BLOOD UREA NITROGEN 33 MG/DL (9-23); CARBON DIOXIDE LEVEL 16 MMOL/L (20-31); CHLORIDE LEVEL 113 MMOL/L (98-107); CREATININE FOR GFR 0.93 MG/DL (0.55-1.30); GLOMERULAR FILTRATION RATE > 60.0 (>39); GLUCOSE, FASTING 195 MG/DL (74-106); POTASSIUM SERUM 4.2 MMOL/L (3.5-5.1); SODIUM LEVEL 142 MMOL/L (136-145)
[2024-09-27 11:58] VITALS: BP 132/60; TEMP 96.9; O2SAT 93
[2024-09-27] MEDS: SODIUM BICARBONATE 325 MG TAB PO SCH (12:37)
[2024-09-27] MEDS: FERRIC CARBOXYMALTOSE INJ 750 MG, VIAL MATE ADAPTER 1 EACH in NS 100 ML IV ONE (12:38)
[2024-09-27] MEDS: cefTRIAXone SOD 1 GM in DEXTROSE 5% (D5W) ADV/MINI-BAG 50 ML IV SCH (15:52)
[2024-09-27 16:22] VITALS: BP 103/56; TEMP 97; O2SAT 90
[2024-09-27 19:53] VITALS: BP 101/56; TEMP 97.8; O2SAT 90
[2024-09-27] MEDS: guaiFENesin ER TABLET 600 MG TAB PO SCH (21:05)
[2024-09-27 23:31] VITALS: BP 118/57; TEMP 97.5; O2SAT 90
[2024-09-28 03:31] VITALS: BP 127/61; TEMP 97.8; O2SAT 92
[2024-09-28 06:15] LABS: BASO # 0.1 10^3/uL (0.0-0.2); BASO % 0.7 % (0.0-1.0); EOS # 0.7 10^3/uL (0.0-0.5); EOS % 6.8 % (0.0-3.0); HEMOGLOBIN 8.9 g/dl (12.0-15.5); LYMPH # 1.1 10^3/uL (1.5-5.0); LYMPH % 10.7 % (24.0-44.0); MEAN CORPUSCULAR HEMOGLOBIN 30.8 pg (27.0-33.0); MEAN CORPUSCULAR VOLUME 93.4 fl (80.0-96.0); MONO # 1.1 10^3/uL (0.0-0.8); MONO % 9.9 % (2.0-8.0); NEUTROPHILS # 7.5 10^3/uL (1.5-8.5); NEUTROPHILS % 70.2 % (36.0-66.0); PLATELET COUNT, AUTOMATED 264 10^3/uL (150-450); RED BLOOD COUNT 2.89 10^6/uL (4.00-5.40); WHITE BLOOD COUNT 10.6 10^3/uL (4.0-10.0)
[2024-09-28 06:40] LABS: BLOOD UREA NITROGEN 21 MG/DL (9-23); C REACTIVE PROTEIN QUANTITATIV 8.57 MG/DL (<1.0); CARBON DIOXIDE LEVEL 19 MMOL/L (20-31); CHLORIDE LEVEL 112 MMOL/L (98-107); CREATININE FOR GFR 0.85 MG/DL (0.55-1.30); GLOMERULAR FILTRATION RATE > 60.0 (>39); GLUCOSE, FASTING 114 MG/DL (74-106); POTASSIUM SERUM 4.1 MMOL/L (3.5-5.1); SODIUM LEVEL 140 MMOL/L (136-145)
[2024-09-28 07:55] VITALS: BP 122/60; TEMP 97.7; O2SAT 91
[2024-09-28] MEDS: OMEPRAZOLE 20MG CAP PO SCH (10:11)
[2024-09-28 12:27] VITALS: BP 157/60; TEMP 97.8; O2SAT 92
[2024-09-28] MEDS: ONDANSETRON 4MG 2ML VIAL IV PRN (13:22)
[2024-09-28] MEDS: CEFDINIR 300 MG CAP (OMNICEF) PO SCH (14:07)
[2024-09-28 16:52] VITALS: BP 130/62; TEMP 97.9; O2SAT 92
[2024-09-28 19:29] VITALS: BP 104/56; TEMP 98.6; O2SAT 92
[2024-09-28 23:02] VITALS: BP 113/84; TEMP 97.6; O2SAT 89
[2024-09-29 03:33] VITALS: BP 106/54; TEMP 98.1; O2SAT 93
[2024-09-29 06:43] LABS: BASO # 0.1 10^3/uL (0.0-0.2); BASO % 0.8 % (0.0-1.0); EOS # 0.7 10^3/uL (0.0-0.5); EOS % 6.3 % (0.0-3.0); HEMATOCRIT 28.1 % (36.0-47.0); HEMOGLOBIN 9.4 g/dl (12.0-15.5); LYMPH # 1.6 10^3/uL (1.5-5.0); LYMPH % 15.2 % (24.0-44.0); MEAN CORPUSCULAR HEMOGLOBIN 31.4 pg (27.0-33.0); MEAN CORPUSCULAR HGB CONC 33.5 g/dl (32.0-36.5); MONO # 1.1 10^3/uL (0.0-0.8); MONO % 10.9 % (2.0-8.0); NEUTROPHILS # 6.7 10^3/uL (1.5-8.5); NEUTROPHILS % 64.3 % (36.0-66.0); PLATELET COUNT, AUTOMATED 289 10^3/uL (150-450); RED BLOOD COUNT 2.99 10^6/uL (4.00-5.40); WHITE BLOOD COUNT 10.4 10^3/uL (4.0-10.0)
[2024-09-29 07:10] LABS: C REACTIVE PROTEIN QUANTITATIV 7.55 MG/DL (<1.0)
[2024-09-29 07:11] LABS: BLOOD UREA NITROGEN 17 MG/DL (9-23); CALCIUM LEVEL 8.1 MG/DL (8.3-10.6); CARBON DIOXIDE LEVEL 22 MMOL/L (20-31); CHLORIDE LEVEL 109 MMOL/L (98-107); CREATININE FOR GFR 0.83 MG/DL (0.55-1.30); GLOMERULAR FILTRATION RATE > 60.0 (>39); GLUCOSE, FASTING 106 MG/DL (74-106); MAGNESIUM LEVEL 1.8 MG/DL (1.8-2.4); POTASSIUM SERUM 4.1 MMOL/L (3.5-5.1); SODIUM LEVEL 140 MMOL/L (136-145)
[2024-09-29 07:40] VITALS: BP 147/67; TEMP 97.6; O2SAT 100
[2024-09-29 08:22] VITALS: BP 147/67
[2024-09-29] MEDS ORDERED: ELIQ5TAB PO ×2 (09:55→10:33)
[2024-09-29] MEDS ORDERED: CEFD300CAP PO (09:55)
[2024-09-29] MEDS ORDERED: DOXY100T PO (09:55)
[2024-09-29] MEDS ORDERED: CEFD1CAP9 PO (10:33)
[2024-09-29] MEDS ORDERED: DOXY100T27 PO (10:33)
[2024-10-01 19:12] LABS: URINE STREP PNEUMONIAE ANTIGEN NOT DETECTED (NOT DETECT)
[2024-10-03] MEDS ORDERED: APIXABAN 5 MG TAB (ELIQUIS) PO SCH (21:00)
== END 2024-09-29 11:18 | disposition home or self-care (01) | DRG 175 ==
LOC: M ED 10:14 → M ED INP 16:54 → M PCU 20:40
PROVIDERS: ADMIT Internal Medicine; ATTEND Internal Medicine
DX: I26.99 Other pulmonary embolism without acute cor pulmonale (principal); J15.69 Pneumonia due to other Gram-negative bacteria; I24.89 Other forms of acute ischemic heart disease; J98.11 Atelectasis; N17.9 Acute kidney failure, unspecified; E87.20 Acidosis, unspecified; I82.432 Acute embolism and thrombosis of left popliteal vein; J43.9 Emphysema, unspecified; I10 Essential (primary) hypertension; R73.03 Prediabetes; D64.9 Anemia, unspecified; E78.5 Hyperlipidemia, unspecified; L97.529 Non-pressure chronic ulcer of other part of left foot with unspecified severity; K21.9 Gastro-esophageal reflux disease without esophagitis; M81.0 Age-related osteoporosis without current pathological fracture; E55.9 Vitamin D deficiency, unspecified; Z87.891 Personal history of nicotine dependence

== ENCOUNTER → 2024-10-09 | Outpatient (CLI) | payer MEDICARE ==
[~2024-10-09] MED LIST changes: +ALBU8.5H PO; +ALEN70TA82 PO; +CALCCAP4 PO; +CARV3.12 PO; +CEFD1CAP9 PO; +CEFD300CAP PO; +CHOL50003 PO; +DOXY100T PO; +DOXY100T27 PO; +ELIQ5TAB PO; +MELA5TAB7 PO; +SPIR-10 PO
== END ==
LOC: M CLY 10:50
PROVIDERS: ATTEND Physician Assistant
DX: J18.9 Pneumonia, unspecified organism (principal); D53.9 Nutritional anemia, unspecified; N17.9 Acute kidney failure, unspecified

== ENCOUNTER → 2024-10-09 | Outpatient (REF) | payer MEDICARE ==
[2024-10-09 14:16] LABS: HEMATOCRIT 31.9 % (36.0-47.0); MEAN CORPUSCULAR HEMOGLOBIN 31.3 pg (27.0-33.0); MEAN CORPUSCULAR HGB CONC 31.3 g/dl (32.0-36.5); MEAN CORPUSCULAR VOLUME 99.7 fl (80.0-96.0); PLATELET COUNT, AUTOMATED 212 10^3/uL (150-450); WHITE BLOOD COUNT 9.5 10^3/uL (4.0-10.0)
[2024-10-09 14:49] LABS: FOLATE 6.9 NG/ML (>5.4)
[2024-10-09 14:50] LABS: VITAMIN B12 LEVEL 419 PG/ML (211-911)
[2024-10-09 14:52] LABS: IRON (FE) 41 UG/DL (50-170); PERCENT SATURATION 18.6 % (13.2-45.0); TOTAL IRON BINDING CAPACITY 220 UG/DL (250-425)
[2024-10-09 14:57] LABS: BLOOD UREA NITROGEN 10 MG/DL (9-23); CALCIUM LEVEL 6.7 MG/DL (8.3-10.6); CARBON DIOXIDE LEVEL 25 MMOL/L (20-31); CHLORIDE LEVEL 111 MMOL/L (98-107); CREATININE FOR GFR 0.73 MG/DL (0.55-1.30); GLOMERULAR FILTRATION RATE > 60.0 (>39); GLUCOSE, FASTING 82 MG/DL (74-106); SODIUM LEVEL 143 MMOL/L (136-145)
== END ==
LOC: M SFHCCLAY 10:12
PROVIDERS: ATTEND Physician Assistant
DX: D53.9 Nutritional anemia, unspecified (principal); N17.9 Acute kidney failure, unspecified

== ENCOUNTER → 2024-10-16 | Outpatient (REF) | payer MEDICARE ==
[2024-10-16 20:39] LABS: ALBUMIN 2.9 G/DL (3.2-5.2); ALKALINE PHOSPHATASE 120 U/L (35-104); ALT/SGPT 12 U/L (7.0-40); AST/SGOT 13 U/L (<34); BILIRUBIN,TOTAL 0.4 MG/DL (0.3-1.2); BLOOD UREA NITROGEN 9 MG/DL (9-23); CALCIUM LEVEL 5.6 MG/DL (8.3-10.6); CARBON DIOXIDE LEVEL 27 MMOL/L (20-31); CHLORIDE LEVEL 107 MMOL/L (98-107); CREATININE FOR GFR 0.69 MG/DL (0.55-1.30); GLOMERULAR FILTRATION RATE > 60.0 (>39); GLUCOSE, FASTING 93 MG/DL (74-106); POTASSIUM SERUM 3.4 MMOL/L (3.5-5.1); SODIUM LEVEL 146 MMOL/L (136-145)
== END ==
LOC: M SFHCCLAY 14:30
PROVIDERS: ATTEND Physician Assistant
DX: R60.0 Localized edema (principal); R06.02 Shortness of breath

== ENCOUNTER → 2024-10-20 | Outpatient (REF) | payer MEDICARE ==
[~2024-10-20] MED LIST changes: +CHOL12508 PO; +FAMO20TA PO; +FURO80TA2 PO; +LOPE2CAP PO
[2024-10-20 17:47] LABS: BLOOD UREA NITROGEN 9 MG/DL (9-23); CALCIUM LEVEL 5.6 MG/DL (8.3-10.6); CARBON DIOXIDE LEVEL 29 MMOL/L (20-31); CHLORIDE LEVEL 107 MMOL/L (98-107); CREATININE FOR GFR 0.75 MG/DL (0.55-1.30); GLOMERULAR FILTRATION RATE > 60.0 (>39); GLUCOSE, FASTING 81 MG/DL (74-106); POTASSIUM SERUM 3.3 MMOL/L (3.5-5.1); SODIUM LEVEL 145 MMOL/L (136-145)
== END ==
LOC: M SFHCCLAY 14:31
PROVIDERS: ATTEND Physician Assistant
DX: R60.0 Localized edema (principal); E83.51 Hypocalcemia

== ENCOUNTER → 2024-10-21 | Outpatient (CLI) | payer MEDICARE ==
[~2024-10-21] MED LIST changes: -FAMO20TA PO; -LOPE2CAP PO
[2024-10-21 13:58] LABS: IONIZED CALCIUM 3.1 MG/DL (4.5-5.3)
[2024-10-21 15:50] LABS: GLUCOSE, FASTING 99 MG/DL (74-106)
[2024-10-21 15:51] LABS: BLOOD UREA NITROGEN 11 MG/DL (9-23); CREATININE FOR GFR 0.74 MG/DL (0.55-1.30); GLOMERULAR FILTRATION RATE > 60.0 (>39)
[2024-10-21 15:52] LABS: ALBUMIN 2.9 G/DL (3.2-5.2); ALKALINE PHOSPHATASE 99 U/L (35-104); ALT/SGPT < 9 U/L (7.0-40); AST/SGOT 13 U/L (<34); BILIRUBIN,TOTAL 0.5 MG/DL (0.3-1.2); CARBON DIOXIDE LEVEL 27.2 MMOL/L (20-31); CHLORIDE LEVEL 105 MMOL/L (98-107); POTASSIUM SERUM 3.2 MMOL/L (3.5-5.1); PTH INTACT 84.8 PG/ML (18.5-88.0); SODIUM LEVEL 144 MMOL/L (136-145)
[2024-10-21 15:53] LABS: LIPASE 30 U/L (12-53); TOTAL 25(OH) VITAMIN D 74.6 NG/ML (20.0-100.0)
[2024-10-21 15:56] LABS: MAGNESIUM LEVEL < 0.5 MG/DL (1.8-2.4)
== END ==
LOC: M LAB 12:22
PROVIDERS: ATTEND Physician Assistant
DX: E83.51 Hypocalcemia (principal)

== ENCOUNTER 2024-10-22 10:11 | Observation (INO) | payer MEDICARE ==
[~2024-10-22] VITALS: Ht 152.4 cm; Wt 83.3 kg
[~2024-10-22 10:11] MED LIST changes: -CHOL12508 PO; -FURO80TA2 PO
[2024-10-22 11:31] LABS: BASO # 0.1 10^3/uL (0.0-0.2); EOS # 0.4 10^3/uL (0.0-0.5); EOS % 4.8 % (0.0-3.0); HEMATOCRIT 36.6 % (36.0-47.0); HEMOGLOBIN 11.4 g/dl (12.0-15.5); LYMPH # 1.8 10^3/uL (1.5-5.0); MEAN CORPUSCULAR HEMOGLOBIN 31.5 pg (27.0-33.0); MEAN CORPUSCULAR HGB CONC 31.1 g/dl (32.0-36.5); MEAN CORPUSCULAR VOLUME 101.1 fl (80.0-96.0); MONO # 0.7 10^3/uL (0.0-0.8); MONO % 8.3 % (2.0-8.0); NEUTROPHILS # 5.5 10^3/uL (1.5-8.5); NEUTROPHILS % 63.9 % (36.0-66.0); PLATELET COUNT, AUTOMATED 257 10^3/uL (150-450); RED BLOOD COUNT 3.62 10^6/uL (4.00-5.40); WHITE BLOOD COUNT 8.7 10^3/uL (4.0-10.0)
[2024-10-22 12:25] LABS: BLOOD UREA NITROGEN 12 MG/DL (9-23); CALCIUM LEVEL 6.2 MG/DL (8.3-10.6); CARBON DIOXIDE LEVEL 29 MMOL/L (20-31); CHLORIDE LEVEL 106 MMOL/L (98-107); CREATININE FOR GFR 0.69 MG/DL (0.55-1.30); GLOMERULAR FILTRATION RATE > 60.0 (>39); GLUCOSE, FASTING 97 MG/DL (74-106); MAGNESIUM LEVEL 0.6 MG/DL (1.8-2.4); PHOSPHORUS LEVEL 4.3 MG/DL (2.4-5.1); POTASSIUM SERUM 3.8 MMOL/L (3.5-5.1); PTH INTACT 76.2 PG/ML (18.5-88.0); SODIUM LEVEL 145 MMOL/L (136-145); TOTAL 25(OH) VITAMIN D 67.6 NG/ML (20.0-100.0)
[2024-10-22] MEDS: MAG SULF 1GM/100ML (MAG RUN) 1 GM in IV 1 EA IV ONE (12:30)
[2024-10-22] MEDS ORDERED: ELIQ5TAB PO (12:35)
[2024-10-22] MEDS ORDERED: HOME MED LIST COMPLETE! XX SCH (12:35)
[2024-10-22] MEDS ORDERED: FURO80TA2 PO (12:35)
[2024-10-22] MEDS ORDERED: CHOL12508 PO (12:35)
[2024-10-22] MEDS ORDERED: CETIRIZINE (ZyrTEC) 10 MG TAB PO PRN (13:25)
[2024-10-22] MEDS ORDERED: ALBUTEROL 90 MCG/ACT 8GM HFA INHALER INH PRN (13:25)
[2024-10-22] MEDS: CALCIUM GLUCONATE 1,000 MG in DEXTROSE 5% (D5W) MINI-BAG PLU 100 ML IV SCH (13:34)
[2024-10-22 15:42] VITALS: BP 156/60; TEMP 97.2; O2SAT 95
[2024-10-22] MEDS: MAG SULF 1GM/100ML (MAG RUN) 1 GM in IV 1 EA IV SCH (15:45)
[2024-10-22 17:10] LABS: FREE T4 1.21 NG/DL (0.89-1.76); THYROID STIMULATING HORMONE 2.216 uIU/ML (0.55-4.78)
[2024-10-22 17:59] LABS: BLOOD UREA NITROGEN 12 MG/DL (9-23); CARBON DIOXIDE LEVEL 28 MMOL/L (20-31); CHLORIDE LEVEL 105 MMOL/L (98-107); GLOMERULAR FILTRATION RATE > 60.0 (>39); GLUCOSE, FASTING 128 MG/DL (74-106); MAGNESIUM LEVEL 1.6 MG/DL (1.8-2.4); POTASSIUM SERUM 2.9 MMOL/L (3.5-5.1); SODIUM LEVEL 142 MMOL/L (136-145)
[2024-10-22] MEDS: POTASSIUM CHLORIDE 10MEQ SR TABLET PO SCH (18:14)
[2024-10-22 19:14] VITALS: BP 116/50; TEMP 97.5; O2SAT 100
[2024-10-22] MEDS: APIXABAN 5 MG TAB (ELIQUIS) PO SCH (20:48)
[2024-10-22] MEDS: KCL 10MEQ/100ML SWI (KRUN) 10 MEQ in IV 1 EA IV SCH (20:49)
[2024-10-22] MEDS: CARVedilol 3.125 MG TAB PO SCH (20:49)
[2024-10-22] MEDS: ACETAMINOPHEN 325 MG TAB PO PRN (20:51)
[2024-10-23] VITALS: BP 126/46; TEMP 97.7; O2SAT 90
[2024-10-23 00:33] LABS: BLOOD UREA NITROGEN 11 MG/DL (9-23); CALCIUM LEVEL 6.9 MG/DL (8.3-10.6); CARBON DIOXIDE LEVEL 27 MMOL/L (20-31); CHLORIDE LEVEL 106 MMOL/L (98-107); CREATININE FOR GFR 0.81 MG/DL (0.55-1.30); GLOMERULAR FILTRATION RATE > 60.0 (>39); GLUCOSE, FASTING 149 MG/DL (74-106); MAGNESIUM LEVEL 2.3 MG/DL (1.8-2.4); POTASSIUM SERUM 4.1 MMOL/L (3.5-5.1); SODIUM LEVEL 142 MMOL/L (136-145)
[2024-10-23 03:50] VITALS: BP 130/47; TEMP 97.3; O2SAT 94
[2024-10-23 05:46] LABS: HEMATOCRIT 32.4 % (36.0-47.0); HEMOGLOBIN 10.1 g/dl (12.0-15.5); MEAN CORPUSCULAR HEMOGLOBIN 31.1 pg (27.0-33.0); MEAN CORPUSCULAR HGB CONC 31.2 g/dl (32.0-36.5); MEAN CORPUSCULAR VOLUME 99.7 fl (80.0-96.0); PLATELET COUNT, AUTOMATED 232 10^3/uL (150-450); RED BLOOD COUNT 3.25 10^6/uL (4.00-5.40); WHITE BLOOD COUNT 8.9 10^3/uL (4.0-10.0)
[2024-10-23 06:10] LABS: BLOOD UREA NITROGEN 10 MG/DL (9-23); CALCIUM LEVEL 6.9 MG/DL (8.3-10.6); CARBON DIOXIDE LEVEL 26 MMOL/L (20-31); CHLORIDE LEVEL 105 MMOL/L (98-107); CREATININE FOR GFR 0.67 MG/DL (0.55-1.30); GLOMERULAR FILTRATION RATE > 60.0 (>39); GLUCOSE, FASTING 108 MG/DL (74-106); POTASSIUM SERUM 4.8 MMOL/L (3.5-5.1); SODIUM LEVEL 141 MMOL/L (136-145)
[2024-10-23 08:00] VITALS: BP 98/52; TEMP 97.2; O2SAT 94
[2024-10-23 08:31] VITALS: BP 96/52
[2024-10-23] MEDS: SIMVASTATIN 20 MG TAB PO SCH (08:31)
[2024-10-23] MEDS: MONTELUKAST 10 MG TAB PO SCH (08:31)
[2024-10-23] MEDS: OMEPRAZOLE 20MG CAP PO SCH (08:31)
[2024-10-23 08:41] LABS: BLOOD UREA NITROGEN 10 MG/DL (9-23); CALCIUM LEVEL 7.1 MG/DL (8.3-10.6); CARBON DIOXIDE LEVEL 29 MMOL/L (20-31); CHLORIDE LEVEL 105 MMOL/L (98-107); CREATININE FOR GFR 0.73 MG/DL (0.55-1.30); GLOMERULAR FILTRATION RATE > 60.0 (>39); GLUCOSE, FASTING 131 MG/DL (74-106); POTASSIUM SERUM 3.9 MMOL/L (3.5-5.1); SODIUM LEVEL 144 MMOL/L (136-145)
[2024-10-23] MEDS ORDERED: LOPE2CAP PO (11:39)
[2024-10-23] MEDS ORDERED: FAMO20TA PO (11:46)
== END 2024-10-23 12:54 | disposition home or self-care (01) ==
LOC: M ED 10:11 → M ED INP 10:12 → M MSPAV 15:12
PROVIDERS: ADMIT Student in an Organized Health Care Education/Training Program; ATTEND Student in an Organized Health Care Education/Training Program
DX: E83.42 Hypomagnesemia (principal); E83.51 Hypocalcemia; E87.8 Other disorders of electrolyte and fluid balance, not elsewhere classified; E87.6 Hypokalemia; R19.7 Diarrhea, unspecified; R60.9 Edema, unspecified; I00 Rheumatic fever without heart involvement; E78.5 Hyperlipidemia, unspecified; K21.9 Gastro-esophageal reflux disease without esophagitis; E55.9 Vitamin D deficiency, unspecified; M81.0 Age-related osteoporosis without current pathological fracture; R73.03 Prediabetes; J44.9 Chronic obstructive pulmonary disease, unspecified; Z86.711 Personal history of pulmonary embolism; Z79.01 Long term (current) use of anticoagulants; Z79.899 Other long term (current) drug therapy
CPT/HCPCS: 36415; 71045; 80048; 82306; 82330; 82652; 83735; 83970; 84100; 84439; 84443; 85025; 85027; 87507; 93005; 93041; 94760; 96360; 96361; 99285; G0378; J0612; J3475

== ENCOUNTER → 2024-10-29 | Outpatient (CLI) | payer MEDICARE ==
[~2024-10-29] MED LIST changes: +CHOL12508 PO; +FAMO20TA PO; +FURO80TA2 PO; +LOPE2CAP PO
== END ==
LOC: M RAD 12:51
PROVIDERS: ATTEND Physician Assistant
DX: Z12.2 Encounter for screening for malignant neoplasm of respiratory organs (principal); Z87.891 Personal history of nicotine dependence

== ENCOUNTER → 2024-11-03 | Outpatient (REF) | payer MEDICARE ==
[2024-11-03 18:01] LABS: HEMATOCRIT 43.3 % (36.0-47.0); HEMOGLOBIN 13.3 g/dl (12.0-15.5); MEAN CORPUSCULAR HEMOGLOBIN 30.7 pg (27.0-33.0); MEAN CORPUSCULAR HGB CONC 30.7 g/dl (32.0-36.5); PLATELET COUNT, AUTOMATED 301 10^3/uL (150-450); RED BLOOD COUNT 4.33 10^6/uL (4.00-5.40); WHITE BLOOD COUNT 10.3 10^3/uL (4.0-10.0)
[2024-11-03 18:41] LABS: IRON (FE) 49 UG/DL (50-170)
[2024-11-03 18:44] LABS: BLOOD UREA NITROGEN 15 MG/DL (9-23); CALCIUM LEVEL 10.1 MG/DL (8.3-10.6); CARBON DIOXIDE LEVEL 26 MMOL/L (20-31); CHLORIDE LEVEL 105 MMOL/L (98-107); CREATININE FOR GFR 0.84 MG/DL (0.55-1.30); FERRITIN 289.6 NG/ML (7.3-270.7); GLOMERULAR FILTRATION RATE > 60.0 (>39); GLUCOSE, FASTING 108 MG/DL (74-106); MAGNESIUM LEVEL 1.7 MG/DL (1.8-2.4); POTASSIUM SERUM 4.8 MMOL/L (3.5-5.1); SODIUM LEVEL 141 MMOL/L (136-145)
== END ==
LOC: M SFHCCLAY 13:48
PROVIDERS: ATTEND Physician Assistant
DX: D53.9 Nutritional anemia, unspecified (principal); R60.0 Localized edema; E83.51 Hypocalcemia; E87.6 Hypokalemia; N17.9 Acute kidney failure, unspecified; E83.42 Hypomagnesemia

== ENCOUNTER → 2024-12-02 | Outpatient (REF) | payer MEDICARE ==
[2024-12-02 18:30] LABS: BLOOD UREA NITROGEN 13 MG/DL (9-23); CARBON DIOXIDE LEVEL 23 MMOL/L (20-31); CHLORIDE LEVEL 107 MMOL/L (98-107); CREATININE FOR GFR 0.71 MG/DL (0.55-1.30); GLOMERULAR FILTRATION RATE > 60.0 (>39); GLUCOSE, FASTING 104 MG/DL (74-106); HEMATOCRIT 43.5 % (36.0-47.0); HEMOGLOBIN 13.6 g/dl (12.0-15.5); IRON (FE) 98 UG/DL (50-170); MAGNESIUM LEVEL 1.4 MG/DL (1.8-2.4); MEAN CORPUSCULAR HEMOGLOBIN 30.6 pg (27.0-33.0); MEAN CORPUSCULAR HGB CONC 31.3 g/dl (32.0-36.5); MEAN CORPUSCULAR VOLUME 97.8 fl (80.0-96.0); PERCENT SATURATION 35.6 % (13.2-45.0); PLATELET COUNT, AUTOMATED 251 10^3/uL (150-450); POTASSIUM SERUM 4.7 MMOL/L (3.5-5.1); RED BLOOD COUNT 4.45 10^6/uL (4.00-5.40); SODIUM LEVEL 141 MMOL/L (136-145); TOTAL IRON BINDING CAPACITY 275 UG/DL (250-425)
[2024-12-02 18:34] LABS: FERRITIN 241.8 NG/ML (7.3-270.7)
== END ==
LOC: M SFHCCLAY 08:50
PROVIDERS: ATTEND Physician Assistant
DX: E83.42 Hypomagnesemia (principal); E83.51 Hypocalcemia; N17.9 Acute kidney failure, unspecified; D53.9 Nutritional anemia, unspecified

== ENCOUNTER → 2024-12-30 | Outpatient (REF) | payer MEDICARE ==
[2024-12-30 15:10] LABS: HEMATOCRIT 43.9 % (36.0-47.0); HEMOGLOBIN 13.9 g/dl (12.0-15.5); MEAN CORPUSCULAR HEMOGLOBIN 31.4 pg (27.0-33.0); MEAN CORPUSCULAR HGB CONC 31.7 g/dl (32.0-36.5); MEAN CORPUSCULAR VOLUME 99.3 fl (80.0-96.0); PLATELET COUNT, AUTOMATED 251 10^3/uL (150-450); RED BLOOD COUNT 4.42 10^6/uL (4.00-5.40)
[2024-12-30 15:19] LABS: ALBUMIN 3.9 G/DL (3.2-5.2); ALKALINE PHOSPHATASE 117 U/L (35-104); ALT/SGPT 16 U/L (7.0-40); AST/SGOT 18 U/L (<34); BILIRUBIN,TOTAL 0.4 MG/DL (0.3-1.2); BLOOD UREA NITROGEN 14 MG/DL (9-23); CALCIUM LEVEL 9.4 MG/DL (8.3-10.6); CARBON DIOXIDE LEVEL 28 MMOL/L (20-31); CHLORIDE LEVEL 106 MMOL/L (98-107); CREATININE FOR GFR 0.72 MG/DL (0.55-1.30); GLOMERULAR FILTRATION RATE > 60.0 (>39); GLUCOSE, FASTING 113 MG/DL (74-106); IRON (FE) 54 UG/DL (50-170); MAGNESIUM LEVEL 1.9 MG/DL (1.8-2.4); PERCENT SATURATION 18.2 % (13.2-45.0); SODIUM LEVEL 140 MMOL/L (136-145); TOTAL IRON BINDING CAPACITY 297 UG/DL (250-425); TOTAL PROTEIN 7.9 G/DL (5.7-8.2)
[2024-12-30 15:20] LABS: FERRITIN 182.8 NG/ML (7.3-270.7)
== END ==
LOC: M SFHCCLAY 08:16
PROVIDERS: ATTEND Physician Assistant
DX: E83.42 Hypomagnesemia (principal); D53.9 Nutritional anemia, unspecified

== ENCOUNTER 2025-01-14 00:17 | Emergency (ER) | payer MEDICARE ==
[~2025-01-14] VITALS: Ht 152.4 cm; Wt 80.6 kg
[2025-01-14 04:29] LABS: BASO # 0.1 10^3/uL (0.0-0.2); HEMATOCRIT 42.6 % (36.0-47.0); HEMOGLOBIN 13.8 g/dl (12.0-15.5); LYMPH # 2.7 10^3/uL (1.5-5.0); LYMPH % 19.9 % (24.0-44.0); MEAN CORPUSCULAR HEMOGLOBIN 30.8 pg (27.0-33.0); MEAN CORPUSCULAR HGB CONC 32.4 g/dl (32.0-36.5); MEAN CORPUSCULAR VOLUME 95.1 fl (80.0-96.0); MONO # 1.5 10^3/uL (0.0-0.8); MONO % 10.7 % (2.0-8.0); NEUTROPHILS # 9.3 10^3/uL (1.5-8.5); NEUTROPHILS % 67.5 % (36.0-66.0); PLATELET COUNT, AUTOMATED 225 10^3/uL (150-450); RED BLOOD COUNT 4.48 10^6/uL (4.00-5.40); WHITE BLOOD COUNT 13.7 10^3/uL (4.0-10.0)
[2025-01-14 04:56] LABS: BILIRUBIN,DIRECT 0.2 MG/DL (<0.4); BILIRUBIN,TOTAL 0.7 MG/DL (0.3-1.2); CALCIUM LEVEL 9.4 MG/DL (8.3-10.6); CREATININE FOR GFR 1.01 MG/DL (0.55-1.30); GLOMERULAR FILTRATION RATE 57.3 (>39); MAGNESIUM LEVEL 1.6 MG/DL (1.8-2.4); POTASSIUM SERUM 4.3 MMOL/L (3.5-5.1); TOTAL PROTEIN 8.1 G/DL (5.7-8.2)
[2025-01-14] MEDS: NS (Normal Saline) 0.9% 1,000 ML IV ONE (05:08)
[2025-01-14] MEDS: ACETAMINOPHEN *IV* 1,000 MG in IV 1 EA IV ONE (05:08)
[2025-01-14] MEDS ORDERED: ISOVUE-370 76% 100ML VIAL As Ordered ONE (06:23)
[2025-01-14] MEDS: MAG SULF 1GM/100ML (MAG RUN) 1 GM in IV 1 EA IV ONE (06:26)
[2025-01-14 08:39] LABS: KETONE, URINE AUTO RFX NEGATIVE (NEGATIVE); LEUKOCYTE ESTERASE UR AUTO RFX NEGATIVE (NEGATIVE); MUCUS, URINE RFX SMALL (NEGATIVE); NITRITE, URINE AUTO RFX NEGATIVE (NEGATIVE); RBC, URINE AUTO RFX 1 /HPF (0-3); SQUAM EPITHELIAL CELL UR AURFX 0 /HPF (0-6); WBC, URINE AUTO RFX 1 /HPF (0-3)
[2025-01-14 10:12] LABS: BASO # 0.2 10^3/uL (0.0-0.2); EOS % 0.1 % (0.0-3.0); LYMPH # 3.4 10^3/uL (1.5-5.0); LYMPH % 23.1 % (24.0-44.0); MONO % 17.4 % (2.0-8.0); NEUTROPHILS # 8.5 10^3/uL (1.5-8.5); NEUTROPHILS % 57.8 % (36.0-66.0); WHITE BLOOD COUNT 14.8 10^3/uL (4.0-10.0)
[2025-01-14 10:20] LABS: MONO # 2.6 10^3/uL (0.0-0.8)
[2025-01-14] MEDS ORDERED: CARV6.25 PO (10:59)
[2025-01-14 11:01] VITALS: BP 140/58
[2025-01-14] MEDS ORDERED: MAGN400T2 PO (11:01)
[2025-01-14] MEDS ORDERED: HOME MED LIST COMPLETE! XX SCH (11:05)
[2025-01-14 11:16] VITALS: TEMP 99; O2SAT 98
[2025-01-14] MEDS ORDERED: ONDA-282 PO (11:30)
[2025-01-14 11:35] VITALS: O2SAT 98
[2025-01-15] MEDS ORDERED: LOPE1CAP5 PO (10:36)
[2025-01-15] MEDS ORDERED: ONDA-282 PO (16:59)
[2025-01-15] MEDS ORDERED: VITA200035 PO (16:59)
== END 2025-01-14 12:19 | disposition home or self-care (01) ==
LOC: M ED 00:17
DX: A08.4 Viral intestinal infection, unspecified (principal); E83.42 Hypomagnesemia; I45.2 Bifascicular block; I10 Essential (primary) hypertension; E78.5 Hyperlipidemia, unspecified; Z86.718 Personal history of other venous thrombosis and embolism; F17.210 Nicotine dependence, cigarettes, uncomplicated; Z88.2 Allergy status to sulfonamides; Z88.8 Allergy status to other drugs, medicaments and biological substances; Z91.040 Latex allergy status; Z79.51 Long term (current) use of inhaled steroids; Z79.01 Long term (current) use of anticoagulants; Z79.899 Other long term (current) drug therapy

== ENCOUNTER 2025-01-15 10:21 | Inpatient (IN) | payer MEDICARE ==
[~2025-01-15] VITALS: Ht 152.4 cm; Wt 84.1 kg
[2025-01-15] VITALS (31 sets, daily range): BP systolic 77–178; BP diastolic 38–97; TEMP 98–98.6; O2SAT 84–99
[~2025-01-15 10:21] MED LIST changes: +CARV6.25 PO; +MAGN400T2 PO; +ONDA-282 PO
[2025-01-15] MEDS ORDERED: LOPE1CAP5 PO (10:36)
[2025-01-15] MEDS: NS (Normal Saline) 0.9% 1,000 ML IV ONE ×2 (12:06→12:57)
[2025-01-15] MEDS: ACETAMINOPHEN *IV* 1,000 MG in IV 1 EA IV ONE (12:19)
[2025-01-15 12:33] LABS: BASO # 0.2 10^3/uL (0.0-0.2); BASO % 1.3 % (0.0-1.0); EOS % 0.2 % (0.0-3.0); HEMATOCRIT 41.3 % (36.0-47.0); HEMOGLOBIN 13.1 g/dl (12.0-15.5); LYMPH # 2.4 10^3/uL (1.5-5.0); LYMPH % 20.4 % (24.0-44.0); MEAN CORPUSCULAR HEMOGLOBIN 31.2 pg (27.0-33.0); MEAN CORPUSCULAR HGB CONC 31.7 g/dl (32.0-36.5); MEAN CORPUSCULAR VOLUME 98.3 fl (80.0-96.0); MONO # 1.2 10^3/uL (0.0-0.8); MONO % 10.4 % (2.0-8.0); NEUTROPHILS # 7.8 10^3/uL (1.5-8.5); NEUTROPHILS % 66.8 % (36.0-66.0); PLATELET COUNT, AUTOMATED 184 10^3/uL (150-450); WHITE BLOOD COUNT 11.6 10^3/uL (4.0-10.0)
[2025-01-15] MEDS: [UNRECOGNIZED DRUG - OTHER] IV ONE (12:40)
[2025-01-15] MEDS: NS 0.9% IV ONE (12:40)
[2025-01-15] MEDS: LIDOCAINE 2% 5ML JELLY UROJET TOP ONE (12:40)
[2025-01-15 12:44] LABS: VENOUS BASE EXCESS -7.8 (-2.0-2.0); VENOUS HCO3 18.5 MMOL/L (23.0-27.0); VENOUS O2 SATURATION 93.4 % (60.0-80.0); VENOUS PARTIAL PRESSURE CO2 40.4 mmHg (38.0-50.0); VENOUS PARTIAL PRESSURE O2 75.2 mmHg (30.0-50.0); VENOUS PH 7.278 UNITS (7.330-7.430); VENOUS STANDARD HCO3 18.1 MMOL/L; VENOUS TOTAL CO2 19.7 MMOL/L (24.0-28.0)
[2025-01-15] MEDS: PIPERACILLIN/TAZOBACTAM SOD 4.5 GM in DEXTROSE 5% (D5W) ADV/MINI-BAG 50 ML IV ONE (12:51)
[2025-01-15] MEDS: NOREPINEPHRINE 4MG IN D5 250ML 4 MG in IV 1 EA IV SCH (12:56)
[2025-01-15] MEDS ORDERED: ISOVUE-370 76% 100ML VIAL As Ordered ONE (13:00)
[2025-01-15 13:02] LABS: CALCIUM LEVEL 8.4 MG/DL (8.3-10.6); CREATININE FOR GFR 1.36 MG/DL (0.55-1.30); GLOMERULAR FILTRATION RATE 40.1 (>39); POTASSIUM SERUM 4.6 MMOL/L (3.5-5.1)
[2025-01-15 13:22] LABS: APPEARANCE, URINE HAZY (CLEAR); BACTERIA, URINE AUTO NEGATIVE (NEGATIVE); BILIRUBIN, URINE AUTO NEGATIVE (NEGATIVE); BLOOD, URINE BLOOD NEGATIVE (NEGATIVE); COLOR, URINE YELLOW (YELLOW); GLUCOSE, URINE (UA) AUTO NEGATIVE (NEGATIVE); KETONE, URINE AUTO TRACE mg/dL (NEGATIVE); LEUKOCYTE ESTERASE, URINE AUTO NEGATIVE (NEGATIVE); NITRITE, URINE AUTO NEGATIVE (NEGATIVE); PROTEIN, URINE AUTO 1+ mg/dL (NEGATIVE); RBC, URINE AUTO 0 /HPF (0-3); SPECIFIC GRAVITY URINE AUTO 1.035 (1.002-1.035); SQUAMOUS EPITHELIAL CELL UR AU 1 /HPF (0-6); UROBILINOGEN, URINE AUTO 0.2 mg/dL (0.0-2.0); WBC, URINE AUTO 2 /HPF (0-3)
[2025-01-15 13:25] LABS: INR 1.55; PARTIAL THROMBOPLASTIN TIME 30.5 SECONDS (24.8-34.2); PROTHROMBIN TIME 18.8 SECONDS (12.5-14.5)
[2025-01-15] MEDS: VANCOMYCIN HCL 1,500 MG, VIAL MATE ADAPTER 1 EACH in NS 500 ML IV ONE (13:32)
[2025-01-15 13:43] LABS: C REACTIVE PROTEIN QUANTITATIV 0.94 MG/DL (<1.0)
[2025-01-15 13:50] LABS: PROCALCITONIN 0.24 ng/ml
[2025-01-15 13:51] LABS: BILIRUBIN,DIRECT 0.2 MG/DL (<0.4); BILIRUBIN,TOTAL 0.5 MG/DL (0.3-1.2); MAGNESIUM LEVEL 1.8 MG/DL (1.8-2.4); TOTAL PROTEIN 5.9 G/DL (5.7-8.2)
[2025-01-15] MEDS: LR 1,000 ML IV SCH (16:33)
[2025-01-15] MEDS ORDERED: ONDA-282 PO (16:59)
[2025-01-15] MEDS ORDERED: VITA200035 PO (16:59)
[2025-01-15] MEDS ORDERED: HOME MED LIST COMPLETE! XX SCH (17:00)
[2025-01-15] MEDS: FORMOTEROL FUMARATE 20 MCG/2 ML INHALATION SOLUTION (PERFOROMIST) INH SCH (20:05)
[2025-01-15] MEDS: BUDESONIDE 0.5 MG/2 ML INHALATION SUSPENSION NEB SCH (20:05)
[2025-01-15] MEDS: APIXABAN 5 MG TAB (ELIQUIS) PO SCH (20:39)
[2025-01-15] MEDS: PIPERACILLIN/TAZOBACTAM SOD 4.5 GM in DEXTROSE 5% (D5W) ADV/MINI-BAG 50 ML IV SCH (20:39)
[2025-01-16] VITALS (72 sets, daily range): BP systolic 79–151; BP diastolic 40–80; TEMP 98.3–104.3; O2SAT 87–96
[2025-01-16 04:33] LABS: BASO # 0.1 10^3/uL (0.0-0.2); BASO % 0.8 % (0.0-1.0); EOS # 0.2 10^3/uL (0.0-0.5); EOS % 1.4 % (0.0-3.0); HEMATOCRIT 34.5 % (36.0-47.0); HEMOGLOBIN 11.3 g/dl (12.0-15.5); LYMPH # 1.6 10^3/uL (1.5-5.0); MEAN CORPUSCULAR HEMOGLOBIN 31.3 pg (27.0-33.0); MEAN CORPUSCULAR HGB CONC 32.8 g/dl (32.0-36.5); MEAN CORPUSCULAR VOLUME 95.6 fl (80.0-96.0); MONO % 9.1 % (2.0-8.0); NEUTROPHILS # 7.8 10^3/uL (1.5-8.5); NEUTROPHILS % 73.2 % (36.0-66.0); PLATELET COUNT, AUTOMATED 166 10^3/uL (150-450); RED BLOOD COUNT 3.61 10^6/uL (4.00-5.40); WHITE BLOOD COUNT 10.7 10^3/uL (4.0-10.0)
[2025-01-16] MEDS: ACETAMINOPHEN *IV* 1,000 MG in IV 1 EA IV ONE ×2 (04:45→22:13)
[2025-01-16 05:04] LABS: FREE T4 0.92 NG/DL (0.89-1.76); THYROID STIMULATING HORMONE 1.565 uIU/ML (0.55-4.78)
[2025-01-16 05:05] LABS: ALBUMIN 3.1 G/DL (3.2-5.2); BILIRUBIN,TOTAL 0.4 MG/DL (0.3-1.2); CALCIUM LEVEL 7.5 MG/DL (8.3-10.6); CREATININE FOR GFR 0.97 MG/DL (0.55-1.30); GLOMERULAR FILTRATION RATE 60.2 (>39); MAGNESIUM LEVEL 1.8 MG/DL (1.8-2.4); PHOSPHORUS LEVEL 1.7 MG/DL (2.4-5.1); POTASSIUM SERUM 4.2 MMOL/L (3.5-5.1); TOTAL PROTEIN 6.2 G/DL (5.7-8.2)
[2025-01-16] MEDS: VANCOMYCIN 125MG CAPSULE PO SCH (06:00)
[2025-01-16] MEDS: SODIUM PHOSPHATE INJ 20 MMOL in D5W 250 ML IV ONE (08:26)
[2025-01-16] MEDS: CALCIUM GLUCONATE 1,000 MG in DEXTROSE 5% (D5W) MINI-BAG PLU 100 ML IV ONE (09:37)
[2025-01-16] MEDS: NOREPINEPHRINE 4MG IN D5 250ML 4 MG in IV 1 EA IV SCH (10:09)
[2025-01-16] MEDS: NS (Normal Saline) 0.9% 1,000 ML IV ONE (23:18)
[2025-01-17] VITALS (38 sets, daily range): BP systolic 77–156; BP diastolic 41–60; TEMP 98.2–103.1; O2SAT 91–97
[2025-01-17] MEDS: LR 1,000 ML IV SCH (02:41)
[2025-01-17 04:22] LABS: BASO # 0.1 10^3/uL (0.0-0.2); BASO % 0.6 % (0.0-1.0); EOS # 0.4 10^3/uL (0.0-0.5); EOS % 3.5 % (0.0-3.0); HEMATOCRIT 32.7 % (36.0-47.0); HEMOGLOBIN 10.9 g/dl (12.0-15.5); LYMPH % 19.6 % (24.0-44.0); MEAN CORPUSCULAR HEMOGLOBIN 31.5 pg (27.0-33.0); MEAN CORPUSCULAR HGB CONC 33.3 g/dl (32.0-36.5); MEAN CORPUSCULAR VOLUME 94.5 fl (80.0-96.0); MONO % 10.3 % (2.0-8.0); NEUTROPHILS # 6.7 10^3/uL (1.5-8.5); NEUTROPHILS % 65.7 % (36.0-66.0); PLATELET COUNT, AUTOMATED 144 10^3/uL (150-450); RED BLOOD COUNT 3.46 10^6/uL (4.00-5.40); WHITE BLOOD COUNT 10.1 10^3/uL (4.0-10.0)
[2025-01-17 04:46] LABS: ALBUMIN 2.9 G/DL (3.2-5.2); BILIRUBIN,TOTAL 0.3 MG/DL (0.3-1.2); CALCIUM LEVEL 7.4 MG/DL (8.3-10.6); CREATININE FOR GFR 0.82 MG/DL (0.55-1.30); GLOMERULAR FILTRATION RATE 73.6 (>39); MAGNESIUM LEVEL 1.7 MG/DL (1.8-2.4); POTASSIUM SERUM 3.6 MMOL/L (3.5-5.1)
[2025-01-17] MEDS: ACETAMINOPHEN *IV* 1,000 MG in IV 1 EA IV PRN (05:00)
[2025-01-17] MEDS: MAG SULF 1GM/100ML (MAG RUN) 1 GM in IV 1 EA IV SCH (06:36)
[2025-01-17] MEDS: CALCIUM GLUCONATE 1,000 MG in DEXTROSE 5% (D5W) MINI-BAG PLU 100 ML IV ONE (08:25)
[2025-01-17 08:59] LABS: PHOSPHORUS LEVEL 2.8 MG/DL (2.4-5.1)
[2025-01-17] MEDS: MONTELUKAST 10 MG TAB PO SCH (13:58)
[2025-01-17] MEDS: VITAMIN D 1,000 INTERNATIONAL UNITS TABLET PO SCH (13:58)
[2025-01-17] MEDS: SIMVASTATIN 20 MG TAB PO SCH (21:17)
[2025-01-17] MEDS: FIDAXOMICIN 200 MG TAB (DIFICID) PO SCH (21:39)
[2025-01-18] VITALS (8 sets, daily range): BP systolic 142–159; BP diastolic 70–76; TEMP 100.1–102.9; O2SAT 89–94
[2025-01-18 06:34] LABS: BASO # 0.1 10^3/uL (0.0-0.2); BASO % 0.6 % (0.0-1.0); EOS # 0.5 10^3/uL (0.0-0.5); EOS % 5.8 % (0.0-3.0); HEMATOCRIT 31.3 % (36.0-47.0); HEMOGLOBIN 10.3 g/dl (12.0-15.5); LYMPH # 1.2 10^3/uL (1.5-5.0); LYMPH % 13.1 % (24.0-44.0); MEAN CORPUSCULAR HEMOGLOBIN 30.4 pg (27.0-33.0); MEAN CORPUSCULAR HGB CONC 32.9 g/dl (32.0-36.5); MEAN CORPUSCULAR VOLUME 92.3 fl (80.0-96.0); MONO # 0.7 10^3/uL (0.0-0.8); MONO % 7.3 % (2.0-8.0); NEUTROPHILS # 6.5 10^3/uL (1.5-8.5); NEUTROPHILS % 72.9 % (36.0-66.0); PLATELET COUNT, AUTOMATED 132 10^3/uL (150-450); RED BLOOD COUNT 3.39 10^6/uL (4.00-5.40); WHITE BLOOD COUNT 8.9 10^3/uL (4.0-10.0)
[2025-01-18 07:13] LABS: ALBUMIN 2.5 G/DL (3.2-5.2); BILIRUBIN,TOTAL 0.3 MG/DL (0.3-1.2); CALCIUM LEVEL 7.4 MG/DL (8.3-10.6); CREATININE FOR GFR 0.75 MG/DL (0.55-1.30); MAGNESIUM LEVEL 1.9 MG/DL (1.8-2.4); POTASSIUM SERUM 2.9 MMOL/L (3.5-5.1); TOTAL PROTEIN 5.4 G/DL (5.7-8.2)
[2025-01-18 07:59] LABS: C REACTIVE PROTEIN QUANTITATIV 2.82 MG/DL (<1.0)
[2025-01-18] MEDS: POTASSIUM CHLORIDE 10MEQ SR TABLET PO ONE ×2 (09:33→12:38)
[2025-01-18] MEDS: NEOSPORIN OINT 0.9 GM PKT TOP ONE (13:58)
[2025-01-18 18:38] LABS: CALCIUM LEVEL 7.9 MG/DL (8.3-10.6); CREATININE FOR GFR 0.71 MG/DL (0.55-1.30); GLOMERULAR FILTRATION RATE 87.5 (>39)
[2025-01-18] MEDS: IBUPROFEN 600MG TAB PO PRN (20:33)
[2025-01-19 04:00] VITALS: BP 139/70; TEMP 96.8; O2SAT 95
[2025-01-19 06:24] LABS: BASO # 0.1 10^3/uL (0.0-0.2); BASO % 0.8 % (0.0-1.0); EOS # 0.3 10^3/uL (0.0-0.5); EOS % 4.2 % (0.0-3.0); HEMATOCRIT 31.4 % (36.0-47.0); HEMOGLOBIN 10.2 g/dl (12.0-15.5); LYMPH # 1.3 10^3/uL (1.5-5.0); LYMPH % 18.2 % (24.0-44.0); MEAN CORPUSCULAR HEMOGLOBIN 30.3 pg (27.0-33.0); MEAN CORPUSCULAR HGB CONC 32.5 g/dl (32.0-36.5); MEAN CORPUSCULAR VOLUME 93.2 fl (80.0-96.0); MONO # 0.6 10^3/uL (0.0-0.8); MONO % 7.8 % (2.0-8.0); NEUTROPHILS # 4.9 10^3/uL (1.5-8.5); NEUTROPHILS % 68.6 % (36.0-66.0); PLATELET COUNT, AUTOMATED 127 10^3/uL (150-450); RED BLOOD COUNT 3.37 10^6/uL (4.00-5.40); WHITE BLOOD COUNT 7.2 10^3/uL (4.0-10.0)
[2025-01-19 07:07] LABS: C REACTIVE PROTEIN QUANTITATIV 3.17 MG/DL (<1.0); CALCIUM LEVEL 7.5 MG/DL (8.3-10.6); CREATININE FOR GFR 0.74 MG/DL (0.55-1.30); GLOMERULAR FILTRATION RATE 83.3 (>39); POTASSIUM SERUM 3.6 MMOL/L (3.5-5.1)
[2025-01-19 10:11] LABS: PROCALCITONIN 0.09 ng/ml
[2025-01-19 12:00] VITALS: BP 152/82; TEMP 101.3; O2SAT 93
[2025-01-19 12:25] VITALS: TEMP 103.8
[2025-01-19 14:29] VITALS: TEMP 101.3
[2025-01-19 16:00] VITALS: TEMP 99.8
[2025-01-19 18:31] LABS: PERCENT SATURATION 12.2 % (13.2-45.0)
[2025-01-19 18:33] LABS: FERRITIN 194.1 NG/ML (7.3-270.7); FOLATE 4.55 NG/ML (>5.4)
[2025-01-19 18:50] LABS: KETONE, URINE AUTO RFX NEGATIVE (NEGATIVE); LEUKOCYTE ESTERASE UR AUTO RFX NEGATIVE (NEGATIVE); MUCUS, URINE RFX SMALL (NEGATIVE); NITRITE, URINE AUTO RFX NEGATIVE (NEGATIVE); RBC, URINE AUTO RFX TNTC /HPF (0-3); SQUAM EPITHELIAL CELL UR AURFX 2 /HPF (0-6); WBC, URINE AUTO RFX 1 /HPF (0-3)
[2025-01-19 21:12] VITALS: BP 150/57; TEMP 99; O2SAT 96
[2025-01-19] MEDS: DOXYCYCLINE HYCLATE 100MG TABLET PO SCH (21:44)
[2025-01-20] VITALS (7 sets, daily range): BP systolic 110–163; BP diastolic 57–66; TEMP 97–104; O2SAT 89–95
[2025-01-20 06:37] LABS: BASO # 0.1 10^3/uL (0.0-0.2); BASO % 0.8 % (0.0-1.0); EOS # 0.1 10^3/uL (0.0-0.5); HEMATOCRIT 31.3 % (36.0-47.0); HEMOGLOBIN 10.4 g/dl (12.0-15.5); LYMPH # 1.1 10^3/uL (1.5-5.0); LYMPH % 12.7 % (24.0-44.0); MEAN CORPUSCULAR HGB CONC 33.2 g/dl (32.0-36.5); MEAN CORPUSCULAR VOLUME 93.4 fl (80.0-96.0); MONO # 0.5 10^3/uL (0.0-0.8); MONO % 5.8 % (2.0-8.0); NEUTROPHILS # 7.1 10^3/uL (1.5-8.5); NEUTROPHILS % 79.3 % (36.0-66.0); PLATELET COUNT, AUTOMATED 178 10^3/uL (150-450); RED BLOOD COUNT 3.35 10^6/uL (4.00-5.40)
[2025-01-20 07:01] LABS: CALCIUM LEVEL 7.9 MG/DL (8.3-10.6); CREATININE FOR GFR 0.74 MG/DL (0.55-1.30); GLOMERULAR FILTRATION RATE 83.3 (>39); POTASSIUM SERUM 3.7 MMOL/L (3.5-5.1)
[2025-01-20] MEDS: FOLIC ACID 1MG TAB PO SCH (10:56)
[2025-01-20 11:45] LABS: VENOUS BASE EXCESS -3.7 (-2.0-2.0); VENOUS HCO3 23.5 MMOL/L (23.0-27.0); VENOUS O2 SATURATION 83.7 % (60.0-80.0); VENOUS PARTIAL PRESSURE CO2 51.3 mmHg (38.0-50.0); VENOUS PARTIAL PRESSURE O2 52.7 mmHg (30.0-50.0); VENOUS PH 7.279 UNITS (7.330-7.430); VENOUS STANDARD HCO3 21.2 MMOL/L; VENOUS TOTAL CO2 25.1 MMOL/L (24.0-28.0)
[2025-01-20] MEDS: KETOROLAC 30 MG/ML 1ML VIAL IV SCH (14:56)
[2025-01-20] MEDS: ACETAMINOPHEN 500 MG TAB PO SCH (14:56)
[2025-01-20] MEDS: FAMOTIDINE 20 MG TAB PO SCH (14:56)
[2025-01-20] MEDS ORDERED: KETOROLAC 30 MG/ML 1ML VIAL IV PRN (15:00)
[2025-01-20 16:19] LABS: VENOUS BASE EXCESS -2.6 (-2.0-2.0); VENOUS HCO3 21.1 MMOL/L (23.0-27.0); VENOUS O2 SATURATION 98.8 % (60.0-80.0); VENOUS PARTIAL PRESSURE CO2 32.9 mmHg (38.0-50.0); VENOUS PH 7.425 UNITS (7.330-7.430); VENOUS STANDARD HCO3 22.3 MMOL/L; VENOUS TOTAL CO2 22.1 MMOL/L (24.0-28.0)
[2025-01-21 03:57] VITALS: BP 162/60; TEMP 97.7; O2SAT 91
[2025-01-21 06:03] LABS: BASO # 0.1 10^3/uL (0.0-0.2); BASO % 1.1 % (0.0-1.0); EOS # 0.3 10^3/uL (0.0-0.5); EOS % 3.4 % (0.0-3.0); HEMATOCRIT 33.7 % (36.0-47.0); HEMOGLOBIN 11.1 g/dl (12.0-15.5); LYMPH # 1.7 10^3/uL (1.5-5.0); LYMPH % 19.5 % (24.0-44.0); MEAN CORPUSCULAR HEMOGLOBIN 31.4 pg (27.0-33.0); MEAN CORPUSCULAR HGB CONC 32.9 g/dl (32.0-36.5); MEAN CORPUSCULAR VOLUME 95.2 fl (80.0-96.0); MONO # 0.6 10^3/uL (0.0-0.8); MONO % 7.4 % (2.0-8.0); NEUTROPHILS # 5.8 10^3/uL (1.5-8.5); NEUTROPHILS % 68.1 % (36.0-66.0); PLATELET COUNT, AUTOMATED 215 10^3/uL (150-450); RED BLOOD COUNT 3.54 10^6/uL (4.00-5.40); WHITE BLOOD COUNT 8.5 10^3/uL (4.0-10.0)
[2025-01-21 06:32] LABS: CALCIUM LEVEL 7.9 MG/DL (8.3-10.6); CREATININE FOR GFR 0.72 MG/DL (0.55-1.30); GLOMERULAR FILTRATION RATE 86.1 (>39); POTASSIUM SERUM 3.8 MMOL/L (3.5-5.1)
[2025-01-21] MEDS ORDERED: PANTOPRAZOLE 40MG TAB (PROTONIX) PO SCH (09:00)
[2025-01-21] MEDS: POTASSIUM CHLORIDE 10MEQ SR TABLET PO SCH (09:27)
[2025-01-21] MEDS: LOSARTAN 50MG TABLET PO SCH (09:29)
[2025-01-21] MEDS: CARVedilol 6.25 MG TAB PO SCH (09:30)
[2025-01-21] MEDS: MAGNESIUM OXIDE 400MG TAB (MAG-OX) PO SCH (09:30)
[2025-01-21 12:00] VITALS: BP 158/69; TEMP 98.2; O2SAT 95
[2025-01-21] MEDS ORDERED: ACETAMINOPHEN 500 MG TAB PO PRN (12:00)
[2025-01-21] MEDS: FERRIC CARBOXYMALTOSE INJ 750 MG, VIAL MATE ADAPTER 1 EACH in NS 100 ML IV ONE (12:41)
[2025-01-21 20:45] VITALS: BP 144/75; TEMP 99.3; O2SAT 94
[2025-01-22 03:15] VITALS: BP 140/66; TEMP 98.1; O2SAT 92
[2025-01-22 06:35] LABS: BASO % 0.4 % (0.0-1.0); EOS % 0.1 % (0.0-3.0); HEMATOCRIT 32.7 % (36.0-47.0); HEMOGLOBIN 10.8 g/dl (12.0-15.5); LYMPH # 1.6 10^3/uL (1.5-5.0); LYMPH % 17.2 % (24.0-44.0); MEAN CORPUSCULAR HEMOGLOBIN 30.9 pg (27.0-33.0); MEAN CORPUSCULAR VOLUME 93.7 fl (80.0-96.0); MONO # 0.8 10^3/uL (0.0-0.8); MONO % 8.1 % (2.0-8.0); NEUTROPHILS # 6.8 10^3/uL (1.5-8.5); NEUTROPHILS % 72.4 % (36.0-66.0); PLATELET COUNT, AUTOMATED 271 10^3/uL (150-450); RED BLOOD COUNT 3.49 10^6/uL (4.00-5.40); WHITE BLOOD COUNT 9.5 10^3/uL (4.0-10.0)
[2025-01-22 07:03] LABS: BLOOD UREA NITROGEN 14 MG/DL (9-23); CALCIUM LEVEL 8.3 MG/DL (8.3-10.6); CARBON DIOXIDE LEVEL 24 MMOL/L (20-31); CHLORIDE LEVEL 106 MMOL/L (98-107); GLOMERULAR FILTRATION RATE > 90.0 (>39); GLUCOSE, FASTING 103 MG/DL (74-106); SODIUM LEVEL 138 MMOL/L (136-145)
[2025-01-22 12:00] VITALS: BP 121/57; TEMP 97.9; O2SAT 93
[2025-01-22 15:23] LABS: VENOUS BASE EXCESS -2.1 (-2.0-2.0); VENOUS HCO3 19.3 MMOL/L (23.0-27.0); VENOUS O2 SATURATION 99.1 % (60.0-80.0); VENOUS PARTIAL PRESSURE CO2 24.8 mmHg (38.0-50.0); VENOUS PH 7.509 UNITS (7.330-7.430); VENOUS STANDARD HCO3 22.8 MMOL/L; VENOUS TOTAL CO2 20.1 MMOL/L (24.0-28.0)
[2025-01-22] MEDS ORDERED: MODAFINIL 100 MG TABLET PO ONE (16:00)
[2025-01-22] MEDS: MODAFINIL 100 MG TABLET PO ONE (16:29)
[2025-01-22 20:36] VITALS: BP 128/57; TEMP 100.5; O2SAT 94
[2025-01-22] MEDS: RAMELTEON 8 MG TAB (ROZEREM) PO SCH (20:57)
[2025-01-23 05:17] VITALS: BP 166/70; TEMP 99.9; O2SAT 95
[2025-01-23 06:31] LABS: BASO # 0.1 10^3/uL (0.0-0.2); BASO % 0.7 % (0.0-1.0); EOS % 0.4 % (0.0-3.0); HEMATOCRIT 32.9 % (36.0-47.0); HEMOGLOBIN 10.9 g/dl (12.0-15.5); LYMPH # 2.2 10^3/uL (1.5-5.0); LYMPH % 25.8 % (24.0-44.0); MEAN CORPUSCULAR HEMOGLOBIN 31.4 pg (27.0-33.0); MEAN CORPUSCULAR HGB CONC 33.1 g/dl (32.0-36.5); MEAN CORPUSCULAR VOLUME 94.8 fl (80.0-96.0); MONO # 0.9 10^3/uL (0.0-0.8); MONO % 10.2 % (2.0-8.0); NEUTROPHILS # 5.2 10^3/uL (1.5-8.5); NEUTROPHILS % 61.5 % (36.0-66.0); PLATELET COUNT, AUTOMATED 281 10^3/uL (150-450); RED BLOOD COUNT 3.47 10^6/uL (4.00-5.40); WHITE BLOOD COUNT 8.5 10^3/uL (4.0-10.0)
[2025-01-23 07:00] LABS: BLOOD UREA NITROGEN 16 MG/DL (9-23); CALCIUM LEVEL 8.4 MG/DL (8.3-10.6); CARBON DIOXIDE LEVEL 22 MMOL/L (20-31); CHLORIDE LEVEL 107 MMOL/L (98-107); CREATININE FOR GFR 0.63 MG/DL (0.55-1.30); GLOMERULAR FILTRATION RATE > 90.0 (>39); GLUCOSE, FASTING 93 MG/DL (74-106); POTASSIUM SERUM 3.7 MMOL/L (3.5-5.1); SODIUM LEVEL 137 MMOL/L (136-145)
[2025-01-23 08:57] LABS: IgG P18 AB NON-REACTIVE; IgG P23 AB NON-REACTIVE; IgG P28 AB NON-REACTIVE; IgG P30 AB NON-REACTIVE; IgG P39 AB REACTIVE; IgG P41 AB NON-REACTIVE; IgG P45 AB NON-REACTIVE; IgG P58 AB NON-REACTIVE; IgG P66 AB NON-REACTIVE; IgG P93 AB NON-REACTIVE; IgM P23 AB NON-REACTIVE; IgM P39 AB NON-REACTIVE; IgM P41 AB NON-REACTIVE; LYME IgG WB INTERPRETATION NEGATIVE (NEGATIVE); LYME IgM WB INTERPRETATION NEGATIVE (NEGATIVE)
[2025-01-23] MEDS: FUROSEMIDE 40 MG TAB PO SCH (09:51)
[2025-01-23 09:55] VITALS: BP 170/66
[2025-01-23] MEDS: MODAFINIL 100 MG TABLET PO ONE (10:23)
[2025-01-23 12:00] VITALS: BP 169/63; TEMP 97.5; O2SAT 92
[2025-01-23 14:05] LABS: VENOUS BASE EXCESS -2.3 (-2.0-2.0); VENOUS HCO3 20.8 MMOL/L (23.0-27.0); VENOUS O2 SATURATION 98.7 % (60.0-80.0); VENOUS PARTIAL PRESSURE CO2 30.9 mmHg (38.0-50.0); VENOUS PARTIAL PRESSURE O2 146.2 mmHg (30.0-50.0); VENOUS PH 7.446 UNITS (7.330-7.430); VENOUS STANDARD HCO3 22.6 MMOL/L; VENOUS TOTAL CO2 21.8 MMOL/L (24.0-28.0)
[2025-01-23 20:00] VITALS: BP 176/60; TEMP 98.4; O2SAT 94
[2025-01-23 22:55] VITALS: BP 167/63
[2025-01-24 03:12] VITALS: TEMP 97.9; O2SAT 95
[2025-01-24 03:28] VITALS: BP 161/71
[2025-01-24 05:08] LABS: BORRELIA SPECIES DNA NOT DETECTED (NOT DETECT)
[2025-01-24 06:46] LABS: BASO # 0.1 10^3/uL (0.0-0.2); BASO % 0.8 % (0.0-1.0); EOS # 0.1 10^3/uL (0.0-0.5); HEMATOCRIT 33.7 % (36.0-47.0); HEMOGLOBIN 11.1 g/dl (12.0-15.5); LYMPH # 2.1 10^3/uL (1.5-5.0); LYMPH % 21.1 % (24.0-44.0); MEAN CORPUSCULAR HGB CONC 32.9 g/dl (32.0-36.5); MEAN CORPUSCULAR VOLUME 94.1 fl (80.0-96.0); MONO # 0.8 10^3/uL (0.0-0.8); MONO % 8.2 % (2.0-8.0); NEUTROPHILS # 6.5 10^3/uL (1.5-8.5); NEUTROPHILS % 67.4 % (36.0-66.0); PLATELET COUNT, AUTOMATED 286 10^3/uL (150-450); RED BLOOD COUNT 3.58 10^6/uL (4.00-5.40); WHITE BLOOD COUNT 9.7 10^3/uL (4.0-10.0)
[2025-01-24 07:13] LABS: BLOOD UREA NITROGEN 14 MG/DL (9-23); CALCIUM LEVEL 8.1 MG/DL (8.3-10.6); CARBON DIOXIDE LEVEL 22 MMOL/L (20-31); CHLORIDE LEVEL 103 MMOL/L (98-107); GLOMERULAR FILTRATION RATE > 90.0 (>39); GLUCOSE, FASTING 83 MG/DL (74-106); POTASSIUM SERUM 3.7 MMOL/L (3.5-5.1); SODIUM LEVEL 135 MMOL/L (136-145)
[2025-01-24 08:00] VITALS: BP 156/71; TEMP 97.9; O2SAT 96
[2025-01-24 08:32] VITALS: BP 173/75
[2025-01-24 08:33] LABS: Anaplasma phagocytophilum NOT DETECTED (NOT DETECT)
[2025-01-24] MEDS: ONDANSETRON 4MG 2ML VIAL IV PRN (09:28)
[2025-01-24] MEDS ORDERED: FIDA200TA PO (09:56)
[2025-01-24] MEDS ORDERED: DOXY100T PO (09:56)
[2025-01-24] MEDS ORDERED: FURO20TA2 PO (09:56)
[2025-01-24] MEDS ORDERED: ACID1TAB PO (09:57)
[2025-01-24] MEDS ORDERED: VANC1CAP6 PO (10:42)
[2025-01-24] MEDS ORDERED: FIDAXOMICIN 200 MG TAB (DIFICID) PO ONE (12:00)
[2025-01-25 05:32] LABS: Babesia microti NOT DETECTED (NOT DETECT)
[2025-01-25 13:47] LABS: Ehrlichia chaffeensis NOT DETECTED (NOT DETECT)
== END 2025-01-24 11:36 | disposition home health service (06) | DRG 871 ==
LOC: M ED 10:21 → M ED INP 14:48 → M ICU 16:13 → M MSPAV 01-17 17:53
PROVIDERS: ADMIT Internal Medicine Pulmonary Disease; ATTEND Student in an Organized Health Care Education/Training Program
DX: A41.9 Sepsis, unspecified organism (principal); R65.21 Severe sepsis with septic shock; J69.0 Pneumonitis due to inhalation of food and vomit; G93.41 Metabolic encephalopathy; A04.72 Enterocolitis due to Clostridium difficile, not specified as recurrent; N17.9 Acute kidney failure, unspecified; E87.1 Hypo-osmolality and hyponatremia; N39.0 Urinary tract infection, site not specified; J44.9 Chronic obstructive pulmonary disease, unspecified; E78.5 Hyperlipidemia, unspecified; G47.33 Obstructive sleep apnea (adult) (pediatric); K21.9 Gastro-esophageal reflux disease without esophagitis; E83.51 Hypocalcemia; E83.42 Hypomagnesemia; I10 Essential (primary) hypertension; D50.9 Iron deficiency anemia, unspecified; E87.6 Hypokalemia; M81.0 Age-related osteoporosis without current pathological fracture; Z86.711 Personal history of pulmonary embolism; Z86.718 Personal history of other venous thrombosis and embolism; Z91.040 Latex allergy status; Z88.8 Allergy status to other drugs, medicaments and biological substances; Z88.2 Allergy status to sulfonamides; Z79.899 Other long term (current) drug therapy; D69.6 Thrombocytopenia, unspecified

== ENCOUNTER → 2025-02-03 | Outpatient (REF) | payer MEDICARE ==
[~2025-02-03] MED LIST changes: +ACID1TAB PO; +FIDA200TA PO; +FURO20TA2 PO; +LOPE1CAP5 PO; +VANC1CAP6 PO; +VITA200035 PO
[2025-02-03 18:17] LABS: HEMATOCRIT 38.5 % (36.0-47.0); HEMOGLOBIN 12.6 g/dl (12.0-15.5); MEAN CORPUSCULAR HEMOGLOBIN 31.9 pg (27.0-33.0); MEAN CORPUSCULAR HGB CONC 32.7 g/dl (32.0-36.5); MEAN CORPUSCULAR VOLUME 97.5 fl (80.0-96.0); PLATELET COUNT, AUTOMATED 195 10^3/uL (150-450); RED BLOOD COUNT 3.95 10^6/uL (4.00-5.40); WHITE BLOOD COUNT 9.7 10^3/uL (4.0-10.0)
[2025-02-03 19:06] LABS: ALBUMIN 3.5 G/DL (3.2-5.2); BILIRUBIN,TOTAL 0.7 MG/DL (0.3-1.2); CALCIUM LEVEL 8.4 MG/DL (8.3-10.6); CREATININE FOR GFR 0.92 MG/DL (0.55-1.30); FERRITIN 736.1 NG/ML (7.3-270.7); GLOMERULAR FILTRATION RATE 64.1 (>39); MAGNESIUM LEVEL 2.1 MG/DL (1.8-2.4); PERCENT SATURATION 18.1 % (13.2-45.0); POTASSIUM SERUM 4.9 MMOL/L (3.5-5.1); TOTAL 25(OH) VITAMIN D 52.6 NG/ML (20.0-100.0); TOTAL PROTEIN 6.7 G/DL (5.7-8.2)
== END ==
LOC: M SFHCCLAY 14:12
PROVIDERS: ATTEND Physician Assistant
DX: D53.9 Nutritional anemia, unspecified (principal); I10 Essential (primary) hypertension; I87.2 Venous insufficiency (chronic) (peripheral); E83.42 Hypomagnesemia; K21.9 Gastro-esophageal reflux disease without esophagitis; I26.99 Other pulmonary embolism without acute cor pulmonale; N17.9 Acute kidney failure, unspecified; J44.9 Chronic obstructive pulmonary disease, unspecified; S91.302D Unspecified open wound, left foot, subsequent encounter; E78.2 Mixed hyperlipidemia; E55.9 Vitamin D deficiency, unspecified; M81.0 Age-related osteoporosis without current pathological fracture; I70.245 Atherosclerosis of native arteries of left leg with ulceration of other part of foot; Z12.31 Encounter for screening mammogram for malignant neoplasm of breast; Z87.891 Personal history of nicotine dependence; Z12.11 Encounter for screening for malignant neoplasm of colon; J30.2 Other seasonal allergic rhinitis; R19.7 Diarrhea, unspecified; R91.1 Solitary pulmonary nodule

== ENCOUNTER → 2025-02-04 | Outpatient (CLI) | payer MEDICARE | LOC: M LAB 10:16 | PROVIDERS: ATTEND Physician Assistant | DX: G93.41 Metabolic encephalopathy (principal) ==

== ENCOUNTER → 2025-02-10 | Outpatient (CLI) | payer MEDICARE ==
[~2025-02-10] MED LIST changes: +MELA5TAB44 PO; -MELA5TAB7 PO
== END ==
LOC: M RAD 12:58
PROVIDERS: ATTEND Physician Assistant
DX: G93.41 Metabolic encephalopathy (principal)

== ENCOUNTER → 2025-04-21 | Outpatient (CLI) | payer MEDICARE | LOC: M RAD 14:16 | PROVIDERS: ATTEND Internal Medicine Pulmonary Disease | DX: R91.8 Other nonspecific abnormal finding of lung field (principal); I25.10 Atherosclerotic heart disease of native coronary artery without angina pectoris; I70.0 Atherosclerosis of aorta; J43.9 Emphysema, unspecified; J47.9 Bronchiectasis, uncomplicated ==

== ENCOUNTER → 2025-05-06 | Outpatient (CLI) | payer MEDICARE | LOC: M SLEEP 20:00 | PROVIDERS: ATTEND Internal Medicine Pulmonary Disease | DX: G47.33 Obstructive sleep apnea (adult) (pediatric) (principal) ==

== ENCOUNTER → 2025-05-07 | Outpatient (REF) | payer MEDICARE ==
[2025-05-07 12:05] LABS: PLATELET COUNT, AUTOMATED 256 10^3/uL (150-450)
[2025-05-07 14:27] LABS: ALT/SGPT 15.0 U/L (7.0-40); AST/SGOT 18.0 U/L (<34); CALCIUM LEVEL 9.3 MG/DL (8.3-10.6); CARBON DIOXIDE LEVEL 31.0 MMOL/L (20-31); CHLORIDE LEVEL 98.0 MMOL/L (98-107); CREATININE FOR GFR 0.76 MG/DL (0.55-1.30); GLOMERULAR FILTRATION RATE 80.7 (>39); IRON (FE) 83.0 UG/DL (50-170); MAGNESIUM LEVEL 1.9 MG/DL (1.8-2.4); PERCENT SATURATION 29.7 % (13.2-45.0); POTASSIUM SERUM 4.1 MMOL/L (3.5-5.1); SODIUM LEVEL 140.0 MMOL/L (136-145)
[2025-05-07 15:44] LABS: ESTIMATED AVERAGE GLUCOSE 114.0 MG/DL (60-110)
== END ==
LOC: M SFHCCLAY 08:11
PROVIDERS: ATTEND Physician Assistant
DX: Z00.00 Encounter for general adult medical examination without abnormal findings (principal); G93.41 Metabolic encephalopathy; D53.9 Nutritional anemia, unspecified; I10 Essential (primary) hypertension; I87.2 Venous insufficiency (chronic) (peripheral); E83.42 Hypomagnesemia; K21.9 Gastro-esophageal reflux disease without esophagitis; I26.99 Other pulmonary embolism without acute cor pulmonale; N17.9 Acute kidney failure, unspecified; J44.9 Chronic obstructive pulmonary disease, unspecified; E78.2 Mixed hyperlipidemia; E55.9 Vitamin D deficiency, unspecified; M81.0 Age-related osteoporosis without current pathological fracture; I70.245 Atherosclerosis of native arteries of left leg with ulceration of other part of foot; Z12.31 Encounter for screening mammogram for malignant neoplasm of breast; Z87.891 Personal history of nicotine dependence; Z12.11 Encounter for screening for malignant neoplasm of colon; J30.2 Other seasonal allergic rhinitis; R19.7 Diarrhea, unspecified; R91.1 Solitary pulmonary nodule; Z79.899 Other long term (current) drug therapy

== ENCOUNTER → 2025-06-29 | Outpatient (CLI) | payer MEDICARE ==
[~2025-06-29] MED LIST changes: -CHOL12508 PO; +[UNRECOGNIZED DRUG - CODE] PO
== END ==
LOC: M CARPUL 08:45
PROVIDERS: ATTEND Internal Medicine Cardiovascular Disease
DX: R06.02 Shortness of breath (principal)
CPT/HCPCS: 78451; 93017; A9500; J2785

== ENCOUNTER → 2025-08-20 | Outpatient (REF) | payer MEDICARE ==
[2025-08-20 18:22] LABS: CHOLESTEROL LEVEL 151.0 MG/DL (<200); CHOLESTEROL RISK RATIO 3.87 (<5); LDL CHOLESTEROL 61.8 MG/DL (<100); NON-HDL-C 112.0 MG/DL; TRIGLYCERIDES LEVEL 251.0 MG/DL (<150)
== END ==
LOC: M LABDRAWC 17:22
PROVIDERS: ATTEND Physician Assistant
DX: E78.5 Hyperlipidemia, unspecified (principal)

== ENCOUNTER → 2025-09-02 | Outpatient (REF) | payer MEDICARE ==
[2025-09-02 13:19] LABS: PLATELET COUNT, AUTOMATED 258 10^3/uL (150-450)
[2025-09-02 13:24] LABS: ALT/SGPT 10.0 U/L (7.0-40); AST/SGOT 16.0 U/L (<34); CALCIUM LEVEL 9.7 MG/DL (8.3-10.6); CARBON DIOXIDE LEVEL 31.0 MMOL/L (20-31); CHLORIDE LEVEL 102.0 MMOL/L (98-107); CREATININE FOR GFR 0.74 MG/DL (0.55-1.30); GLOMERULAR FILTRATION RATE 83.3 (>39); IRON (FE) 62.0 UG/DL (50-170); MAGNESIUM LEVEL 2.0 MG/DL (1.8-2.4); PERCENT SATURATION 23.3 % (13.2-45.0); POTASSIUM SERUM 4.4 MMOL/L (3.5-5.1); SODIUM LEVEL 141.0 MMOL/L (136-145)
[2025-09-02 13:27] LABS: TOTAL 25(OH) VITAMIN D 62.7 NG/ML (20.0-100.0)
[2025-09-02 13:48] LABS: ESTIMATED AVERAGE GLUCOSE 117.0 MG/DL (60-110)
== END ==
LOC: M SFHCCLAY 08:22
PROVIDERS: ATTEND Physician Assistant
DX: G93.41 Metabolic encephalopathy (principal); D53.9 Nutritional anemia, unspecified; I10 Essential (primary) hypertension; I87.2 Venous insufficiency (chronic) (peripheral); E83.42 Hypomagnesemia; K21.9 Gastro-esophageal reflux disease without esophagitis; I26.99 Other pulmonary embolism without acute cor pulmonale; J44.9 Chronic obstructive pulmonary disease, unspecified; E78.2 Mixed hyperlipidemia; E55.9 Vitamin D deficiency, unspecified; M81.0 Age-related osteoporosis without current pathological fracture; I70.245 Atherosclerosis of native arteries of left leg with ulceration of other part of foot; Z12.31 Encounter for screening mammogram for malignant neoplasm of breast; Z87.891 Personal history of nicotine dependence; Z12.11 Encounter for screening for malignant neoplasm of colon; J30.2 Other seasonal allergic rhinitis; R19.7 Diarrhea, unspecified; R91.1 Solitary pulmonary nodule; G47.33 Obstructive sleep apnea (adult) (pediatric); Z79.899 Other long term (current) drug therapy